=== PATIENT | male | born 1955 | race African-American/Black ===

== ENCOUNTER 2020-07-20 17:56 | Inpatient (IN) | payer OTHER ==
[2020-07-20 20:24] LABS: VENOUS BASE EXCESS -4.5 mmol/L (-2-2); VENOUS O2 SATURATION 31.4 % (70-80); VENOUS PCO2 55.3 mmHg (38-52); VENOUS PH 7.249 (7.310-7.410)
[2020-07-20 20:25] LABS: BASO % 0.6 % (0-2.0); EOS % 0.3 % (0-4.5); HEMATOCRIT 42.9 % (35.4-49); HEMOGLOBIN 13.6 GM/dL (11.7-16.9); LYMPH % 11.4 % (8-40); MCH 28.4 pg (25.7-33.7); MCHC 31.7 g/dl (32.0-35.9); MEAN CELL VOLUME 89.5 fl (80-96); MEAN PLT VOLUME 9.8 fl (7.5-11.1); MONO % 8.5 % (3.8-10.2); NEUT % 79.2 % (42.8-82.8); PLATELET COUNT 412 K/MM3 (134-434); WHITE BLOOD COUNT 11.6 K/mm3 (4.0-10.0)
[2020-07-20 20:49] LABS: CHLORIDE 73 mmol/L (98-107); POTASSIUM 4.6 mmol/L (3.5-5.1)
[2020-07-20 20:51] LABS: CALCIUM 9.6 mg/dL (8.5-10.1)
[2020-07-20 20:52] LABS: ALBUMIN 4.4 g/dl (3.4-5.0); BLOOD UREA NITROGEN 73.5 mg/dL (7-18); CO2 24 mmol/L (21-32)
[2020-07-20 20:55] LABS: CREATININE 4.2 mg/dL (0.55-1.3); SGOT/AST 16 U/L (15-37); SGPT/ALT 24 U/L (13-61)
[2020-07-20 20:57] LABS: BILIRUBIN,TOTAL 0.6 mg/dL (0.2-1); TOT PROT 9.3 g/dl (6.4-8.2)
[2020-07-20 20:57] LABS: EPI CELLS 4 /uL (0-25.1); HYALINE CASTS 0 /uL (0-3.1); URINE APPEARANCE CLEAR; URINE BACTERIA 88 /uL (0-1359); URINE BILIRUBIN NEGATIVE (NEGATIVE); URINE COLOR YELLOW; URINE GLUCOSE (UA) 3+ (NEGATIVE); URINE KETONE NEGATIVE (NEGATIVE); URINE LEUK ESTERASE NEGATIVE (NEGATIVE); URINE NITRITE NEGATIVE (NEGATIVE); URINE PROTEIN NEGATIVE (NEGATIVE); URINE RBC 11 /uL (0-23.9); URINE UROBILINOGEN 0.2 mg/dL (0.2-1.0); URINE WBC 21 /uL (0-25.8)
[2020-07-20 20:58] LABS: ALK PHOS 186 U/L (45-117)
[2020-07-20 21:09] LABS: ANION GAP 14 MMOL/L (8-16)
[2020-07-20 21:10] LABS: GLUCOSE,RANDOM 1022 mg/dL (74-106)
[2020-07-20 21:11] LABS: SODIUM 111 mmol/L (136-145)
[2020-07-20] MEDS ORDERED: LACTATED RINGERS SOLUTION 1000 ML INFUS.BAG IV ONE ×2 (21:25→21:37)
[2020-07-20] MEDS ORDERED: INSULIN REGULAR 100 UNITS in SODIUM CHLORIDE 99 ML IVPB SCH (21:30)
[2020-07-20] MEDS ORDERED: INSULIN REGULAR HUMAN 100 UNITS/ML *VIAL* (FOR IVP) IVPUSH ONE (21:30)
[2020-07-20 21:47] LABS: MAGNESIUM 2.3 mg/dL (1.8-2.4)
[2020-07-20] MEDS ORDERED: KCL 10 MEQ IVPB 10 MEQ/100 ML INFUS.BAG IVPB ONE (21:48)
[2020-07-20 21:58] LABS: OSMOLALITY,SERUM 331 mosm/kg (278-305)
[2020-07-20] MEDS: KCL 10 MEQ IVPB 10 MEQ/100 ML INFUS.BAG IVPB SCH (22:09)
[2020-07-20] MEDS ORDERED: HYDROCORTISONE 0.5% TOPICAL CREAM 30 GM TUBE TP ONE (22:10)
[2020-07-20] MEDS ORDERED: SODIUM CHLORIDE 1,000 ML IV SCH (23:00)
[2020-07-21] MEDS ORDERED: KCL 10 MEQ IVPB 10 MEQ/100 ML INFUS.BAG IVPB ONE (00:28)
[2020-07-21] MEDS: KCL 10 MEQ IVPB 10 MEQ/100 ML INFUS.BAG IVPB SCH (00:36)
[2020-07-21 00:46] LABS: POTASSIUM 3.8 mmol/L (3.5-5.1)
[2020-07-21 00:50] LABS: CALCIUM 9.1 mg/dL (8.5-10.1)
[2020-07-21 00:53] LABS: CREATININE 4.1 mg/dL (0.55-1.3)
[2020-07-21] MEDS: SODIUM CHLORIDE 0.45%/POT 20 MEQ/1,000 ML INFUS.BAG IV SCH ×2 (01:57→06:00)
[2020-07-21 02:50] LABS: POTASSIUM 3.6 mmol/L (3.5-5.1)
[2020-07-21 02:51] LABS: CALCIUM 9.4 mg/dL (8.5-10.1)
[2020-07-21 02:52] LABS: BLOOD UREA NITROGEN 68.9 mg/dL (7-18)
[2020-07-21 02:55] LABS: CREATININE 3.8 mg/dL (0.55-1.3)
[2020-07-21] MEDS ORDERED: POTASSIUM CHLORIDE TABS 20 MEQ TABLET.ER (FP) PO ONE (03:15)
[2020-07-21] MEDS: MUPIROCIN 2% TOPICAL OINTMENT FOR DECOLONIZATION NS SCH ×2 (03:30→10:04)
[2020-07-21] MEDS: HEPARIN NA (PORCINE) 5,000 UNITS/ML 1ML VIAL SQ SCH ×3 (05:01→23:12)
[2020-07-21 07:05] LABS: MAGNESIUM 2.3 mg/dL (1.8-2.4); PHOSPHOROUS 2.5 mg/dL (2.5-4.9)
[2020-07-21] MEDS ORDERED: INSULIN (LEVEMIR) 100 UNITS/ML UNITS SQ ONE (07:24)
[2020-07-21 07:35] LABS: MCH 28.7 pg (25.7-33.7); MCHC 33.4 g/dl (32.0-35.9); MEAN CELL VOLUME 85.8 fl (80-96); MEAN PLT VOLUME 9.2 fl (7.5-11.1); PLATELET COUNT 385 K/MM3 (134-434); RBC 4.54 M/mm3 (4.00-5.60); RDW 12.5 % (11.9-15.9); WHITE BLOOD COUNT 14.2 K/mm3 (4.0-10.0)
[2020-07-21] MEDS ORDERED: ACETAMINOPHEN 1000 MG/100 ML VIAL (NON FORMULARY) IVPB ONE (08:39)
[2020-07-21] MEDS ORDERED: FLU VACCINE (FLULAVAL) PF 60 MCG/0.5 ML SYRINGE 2020-2021 IM ONE (10:00)
[2020-07-21] MEDS ORDERED: INSULIN (LEVEMIR) 100 UNITS/ML UNITS SQ SCH ×3 (10:00→16:30)
[2020-07-21] MEDS ORDERED: metoPROLOL SUCCINATE 25 MG TAB.SR.24H (FP) PO SCH (10:00)
[2020-07-21] MEDS ORDERED: ASPIRIN 81 MG CHEWABLE TABLETS PO SCH (10:00)
[2020-07-21] MEDS ORDERED: PNEUMOC 13-VAL CONJ-DIP CRM/PF 0.5 ML DISP.SYRIN IM ONE (10:00)
[2020-07-21] MEDS ORDERED: CLOPIDOGREL BISULFATE 75 MG TABLET (FP) PO SCH (10:00)
[2020-07-21] MEDS ORDERED: PT OWN MED DRAWER 7, Y5N ONE (10:02)
[2020-07-21] MEDS ORDERED: INSULIN SLIDING SCALE (NOVOLOG) 1 VIAL SQ SCH (11:00)
[2020-07-21] MEDS ORDERED: LACTATED RINGERS SOLUTION 1,000 ML/1,000 ML INFUS.BAG IV SCH ×2 (13:00→19:42)
[2020-07-21] MEDS: INSULIN SLIDING SCALE (NOVOLOG) 1 VIAL SQ SCH ×2 (16:03→23:15)
[2020-07-21] MEDS ORDERED: CHLORHEXIDINE GLUCONATE 4% CLEANSER FOR DECOLONIZATION TP SCH (22:00)
[2020-07-21] MEDS ORDERED: ATORVASTATIN CA 80 MG TABLET (FP) PO SCH (22:00)
[2020-07-21] MEDS: ATORVASTATIN CA 80 MG TABLET (FP) PO SCH (23:13)
[2020-07-22] MEDS: HEPARIN NA (PORCINE) 5,000 UNITS/ML 1ML VIAL SQ SCH ×3 (06:23→22:05)
[2020-07-22] MEDS: INSULIN SLIDING SCALE (NOVOLOG) 1 VIAL SQ SCH ×4 (06:25→22:04)
[2020-07-22] MEDS ORDERED: INSULIN (LEVEMIR) 100 UNITS/ML UNITS SQ SCH (07:00)
[2020-07-22] MEDS: INSULIN (LEVEMIR) 100 UNITS/ML UNITS SQ SCH ×2 (10:30→17:06)
[2020-07-22] MEDS: metoPROLOL SUCCINATE 25 MG TAB.SR.24H (FP) PO SCH (10:30)
[2020-07-22] MEDS: PANTOPRAZOLE SOD 40 MG SUSPENSION PACKET PO SCH (10:30)
[2020-07-22] MEDS: CLOPIDOGREL BISULFATE 75 MG TABLET (FP) PO SCH (10:30)
[2020-07-22 10:40] LABS: BASO % 0.9 % (0-2.0); EOS % 2.1 % (0-4.5); HEMATOCRIT 37.4 % (35.4-49); HEMOGLOBIN 12.8 GM/dL (11.7-16.9); LYMPH % 21.5 % (8-40); MCH 29.1 pg (25.7-33.7); MCHC 34.3 g/dl (32.0-35.9); MEAN PLT VOLUME 9.6 fl (7.5-11.1); MONO % 10.7 % (3.8-10.2); NEUT % 64.8 % (42.8-82.8); PLATELET COUNT 390 K/MM3 (134-434); RDW 12.9 % (11.9-15.9); WHITE BLOOD COUNT 12.9 K/mm3 (4.0-10.0)
[2020-07-22 11:05] LABS: POTASSIUM 3.7 mmol/L (3.5-5.1)
[2020-07-22 11:08] LABS: CALCIUM 9.7 mg/dL (8.5-10.1)
[2020-07-22 11:09] LABS: ALBUMIN 3.8 g/dl (3.4-5.0); BLOOD UREA NITROGEN 55.8 mg/dL (7-18)
[2020-07-22 11:14] LABS: BILIRUBIN,TOTAL 0.8 mg/dL (0.2-1); TOT PROT 8.3 g/dl (6.4-8.2)
[2020-07-22] MEDS ORDERED: INSULIN (NOVOLOG) ASPART 100 UNITS/ML 10ML VIAL SQ ONE (14:22)
[2020-07-22] MEDS: SODIUM CHLORIDE 1,000 ML IV SCH (21:09)
[2020-07-22] MEDS: ATORVASTATIN CA 80 MG TABLET (FP) PO SCH (22:05)
[2020-07-23] MEDS: HEPARIN NA (PORCINE) 5,000 UNITS/ML 1ML VIAL SQ SCH ×3 (07:06→21:47)
[2020-07-23] MEDS: INSULIN (LEVEMIR) 100 UNITS/ML UNITS SQ SCH ×2 (07:06→17:29)
[2020-07-23] MEDS: INSULIN SLIDING SCALE (NOVOLOG) 1 VIAL SQ SCH ×3 (07:06→21:46)
[2020-07-23 09:25] LABS: HEMATOCRIT 36.3 % (35.4-49); HEMOGLOBIN 12.1 GM/dL (11.7-16.9); MCH 28.9 pg (25.7-33.7); MCHC 33.4 g/dl (32.0-35.9); MEAN CELL VOLUME 86.5 fl (80-96); MEAN PLT VOLUME 9.3 fl (7.5-11.1); PLATELET COUNT 356 K/MM3 (134-434); RDW 12.8 % (11.9-15.9); WHITE BLOOD COUNT 12.5 K/mm3 (4.0-10.0)
[2020-07-23 09:45] LABS: POTASSIUM 3.6 mmol/L (3.5-5.1)
[2020-07-23 09:49] LABS: BLOOD UREA NITROGEN 47.9 mg/dL (7-18); CALCIUM 9.2 mg/dL (8.5-10.1); MAGNESIUM 1.7 mg/dL (1.8-2.4)
[2020-07-23 09:52] LABS: CREATININE 2.8 mg/dL (0.55-1.3); PHOSPHOROUS 2.2 mg/dL (2.5-4.9)
[2020-07-23] MEDS: MULTIVITAMINS (DAILY MVI) TABLET (FP) PO SCH (10:55)
[2020-07-23] MEDS: metoPROLOL SUCCINATE 25 MG TAB.SR.24H (FP) PO SCH (10:55)
[2020-07-23] MEDS: CLOPIDOGREL BISULFATE 75 MG TABLET (FP) PO SCH (10:55)
[2020-07-23] MEDS: FOLIC ACID 1 MG TABLET (FP) PO SCH (10:55)
[2020-07-23] MEDS: PANTOPRAZOLE SOD 40 MG SUSPENSION PACKET PO SCH (10:55)
[2020-07-23] MEDS: THIAMINE HCL 100 MG TABLET (FP) PO SCH (10:55)
[2020-07-23] MEDS ORDERED: MAGNESIUM SULF 50% (8.12 MEQ/2 ML-1 GM VIAL) IVPB ONE (13:52)
[2020-07-23] MEDS ORDERED: NAPH,MB-DB/K PH,MBDB POWDER PACKET PO ONE (13:52)
[2020-07-23] MEDS ORDERED: MAGNESIUM OXIDE 400 MG TABLET (FP) PO ONE (14:25)
[2020-07-23] MEDS ORDERED: INSULIN SLIDING SCALE (NOVOLOG) 1 VIAL SQ SCH (16:30)
[2020-07-23] MEDS: ATORVASTATIN CA 80 MG TABLET (FP) PO SCH (21:47)
[2020-07-23] MEDS: SODIUM CHLORIDE 1,000 ML IV SCH (21:51)
[2020-07-24] MEDS: SODIUM CHLORIDE 1,000 ML IV SCH ×2 (03:56→17:50)
[2020-07-24] MEDS: INSULIN SLIDING SCALE (NOVOLOG) 1 VIAL SQ SCH ×4 (06:37→21:38)
[2020-07-24] MEDS: INSULIN (LEVEMIR) 100 UNITS/ML UNITS SQ SCH ×2 (06:37→17:50)
[2020-07-24] MEDS: HEPARIN NA (PORCINE) 5,000 UNITS/ML 1ML VIAL SQ SCH ×3 (06:38→21:36)
[2020-07-24] MEDS ORDERED: INSULIN (LEVEMIR) 100 UNITS/ML UNITS SQ ONE (07:19)
[2020-07-24] MEDS ORDERED: INSULIN (NOVOLOG) ASPART 100 UNITS/ML 10ML VIAL ONE (07:20)
[2020-07-24 09:30] LABS: INR 1.19 (0.83-1.09); PROTHROMBIN TIME (PATIENT) 14.3 SEC (9.7-13.0)
[2020-07-24] MEDS: FOLIC ACID 1 MG TABLET (FP) PO SCH (09:34)
[2020-07-24] MEDS: THIAMINE HCL 100 MG TABLET (FP) PO SCH (09:34)
[2020-07-24] MEDS: CLOPIDOGREL BISULFATE 75 MG TABLET (FP) PO SCH (09:34)
[2020-07-24] MEDS: PANTOPRAZOLE SOD 40 MG SUSPENSION PACKET PO SCH (09:34)
[2020-07-24] MEDS: MULTIVITAMINS (DAILY MVI) TABLET (FP) PO SCH (09:35)
[2020-07-24] MEDS: metoPROLOL SUCCINATE 25 MG TAB.SR.24H (FP) PO SCH (09:37)
[2020-07-24 09:44] LABS: POTASSIUM 3.4 mmol/L (3.5-5.1)
[2020-07-24 09:48] LABS: BASO % 0.9 % (0-2.0); EOS % 1.4 % (0-4.5); HEMATOCRIT 34.6 % (35.4-49); HEMOGLOBIN 11.3 GM/dL (11.7-16.9); LYMPH % 18.7 % (8-40); MCH 28.5 pg (25.7-33.7); MCHC 32.5 g/dl (32.0-35.9); MEAN CELL VOLUME 87.6 fl (80-96); MEAN PLT VOLUME 9.6 fl (7.5-11.1); MONO % 12.9 % (3.8-10.2); NEUT % 66.1 % (42.8-82.8); PLATELET COUNT 344 K/MM3 (134-434); RBC 3.95 M/mm3 (4.00-5.60); RDW 12.7 % (11.9-15.9); WHITE BLOOD COUNT 13.9 K/mm3 (4.0-10.0)
[2020-07-24 09:52] LABS: CALCIUM 9.1 mg/dL (8.5-10.1)
[2020-07-24 09:53] LABS: ALBUMIN 3.6 g/dl (3.4-5.0); BLOOD UREA NITROGEN 41.4 mg/dL (7-18); MAGNESIUM 1.7 mg/dL (1.8-2.4)
[2020-07-24 09:56] LABS: CREATININE 2.5 mg/dL (0.55-1.3); PHOSPHOROUS 1.8 mg/dL (2.5-4.9)
[2020-07-24 09:58] LABS: BILIRUBIN,TOTAL 1.6 mg/dL (0.2-1); TOT PROT 7.7 g/dl (6.4-8.2)
[2020-07-24] MEDS ORDERED: MAGNESIUM SULF 50% (8.12 MEQ/2 ML-1 GM VIAL) IVPB ONE (14:06)
[2020-07-24] MEDS ORDERED: POTASSIUM CHLORIDE ORAL LIQUID 20 MEQ/15 ML PO ONE (14:06)
[2020-07-24] MEDS ORDERED: NAPH,MB-DB/K PH,MBDB POWDER PACKET PO ONE (14:08)
[2020-07-24] MEDS ORDERED: MAGNESIUM OXIDE 400 MG TABLET (FP) PO ONE (14:49)
[2020-07-24] MEDS ORDERED: INSULIN (NOVOLOG) ASPART 100 UNITS/ML 10ML VIAL SQ SCH (16:30)
[2020-07-24] MEDS: ACETAMINOPHEN 325 MG TABLET (FP) PO PRN (17:44)
[2020-07-24] MEDS: KCL 10 MEQ IVPB 10 MEQ/100 ML INFUS.BAG IVPB SCH ×3 (17:48→21:36)
[2020-07-24] MEDS: NAPH,MB-DB/K PH,MBDB POWDER PACKET PO SCH ×2 (17:49→21:36)
[2020-07-24] MEDS: INSULIN (NOVOLOG) ASPART 100 UNITS/ML 10ML VIAL SQ SCH (17:55)
[2020-07-24 21:00] LABS: URINE APPEARANCE CLEAR; URINE BILIRUBIN NEGATIVE (NEGATIVE); URINE COLOR YELLOW; URINE GLUCOSE (UA) 3+ (NEGATIVE); URINE KETONE NEGATIVE (NEGATIVE); URINE LEUK ESTERASE NEGATIVE (NEGATIVE); URINE NITRITE NEGATIVE (NEGATIVE); URINE PROTEIN NEGATIVE (NEGATIVE); URINE UROBILINOGEN 0.2 mg/dL (0.2-1.0)
[2020-07-24] MEDS ORDERED: ACETAMINOPHEN 500 MG TABLET (FP) PO ONE (21:24)
[2020-07-24] MEDS: ATORVASTATIN CA 80 MG TABLET (FP) PO SCH (21:36)
[2020-07-25] MEDS: HEPARIN NA (PORCINE) 5,000 UNITS/ML 1ML VIAL SQ SCH ×3 (06:01→21:06)
[2020-07-25] MEDS: INSULIN (LEVEMIR) 100 UNITS/ML UNITS SQ SCH ×4 (06:02→17:44)
[2020-07-25] MEDS: INSULIN (NOVOLOG) ASPART 100 UNITS/ML 10ML VIAL SQ SCH ×3 (06:03→17:44)
[2020-07-25] MEDS: INSULIN SLIDING SCALE (NOVOLOG) 1 VIAL SQ SCH ×4 (06:04→21:10)
[2020-07-25] MEDS ORDERED: INSULIN (LEVEMIR) 100 UNITS/ML UNITS SQ ONE (08:03)
[2020-07-25] MEDS: THIAMINE HCL 100 MG TABLET (FP) PO SCH (09:21)
[2020-07-25] MEDS: MULTIVITAMINS (DAILY MVI) TABLET (FP) PO SCH (09:21)
[2020-07-25] MEDS: FOLIC ACID 1 MG TABLET (FP) PO SCH (09:22)
[2020-07-25] MEDS: CLOPIDOGREL BISULFATE 75 MG TABLET (FP) PO SCH (09:22)
[2020-07-25] MEDS: metoPROLOL SUCCINATE 25 MG TAB.SR.24H (FP) PO SCH (09:22)
[2020-07-25] MEDS: NAPH,MB-DB/K PH,MBDB POWDER PACKET PO SCH ×3 (09:22→21:12)
[2020-07-25] MEDS: ACETAMINOPHEN 325 MG TABLET (FP) PO PRN ×3 (09:27→21:06)
[2020-07-25 10:03] LABS: POTASSIUM 3.8 mmol/L (3.5-5.1)
[2020-07-25 10:05] LABS: BASO % 0.9 % (0-2.0); EOS % 1.7 % (0-4.5); HEMOGLOBIN 10.8 GM/dL (11.7-16.9); LYMPH % 17.9 % (8-40); MCHC 33.6 g/dl (32.0-35.9); MEAN CELL VOLUME 86.3 fl (80-96); MEAN PLT VOLUME 9.3 fl (7.5-11.1); MONO % 12.4 % (3.8-10.2); NEUT % 67.1 % (42.8-82.8); PLATELET COUNT 365 K/MM3 (134-434); RBC 3.71 M/mm3 (4.00-5.60); RDW 12.9 % (11.9-15.9); WHITE BLOOD COUNT 15.6 K/mm3 (4.0-10.0)
[2020-07-25 10:07] LABS: CALCIUM 8.9 mg/dL (8.5-10.1)
[2020-07-25 10:08] LABS: ALBUMIN 3.2 g/dl (3.4-5.0); BLOOD UREA NITROGEN 31.5 mg/dL (7-18); MAGNESIUM 1.8 mg/dL (1.8-2.4)
[2020-07-25 10:11] LABS: CREATININE 2.3 mg/dL (0.55-1.3); PHOSPHOROUS 1.6 mg/dL (2.5-4.9)
[2020-07-25 10:13] LABS: BILIRUBIN,TOTAL 1.9 mg/dL (0.2-1); TOT PROT 7.4 g/dl (6.4-8.2)
[2020-07-25] MEDS: PANTOPRAZOLE SOD 40 MG SUSPENSION PACKET PO SCH (11:02)
[2020-07-25] MEDS ORDERED: INSULIN (NOVOLOG) ASPART 100 UNITS/ML 10ML VIAL ONE (12:05)
[2020-07-25] MEDS: PANTOPRAZOLE 40 MG TABLET PO SCH (12:33)
[2020-07-25 13:05] LABS: RETICULOCYTES 1.59 % (0.5-1.5)
[2020-07-25] MEDS: SODIUM CHLORIDE 1,000 ML IV SCH (14:04)
[2020-07-25] MEDS: ATORVASTATIN CA 80 MG TABLET (FP) PO SCH (21:06)
[2020-07-26] MEDS ORDERED: INSULIN (NOVOLOG) ASPART 100 UNITS/ML 10ML VIAL ONE (05:46)
[2020-07-26] MEDS: HEPARIN NA (PORCINE) 5,000 UNITS/ML 1ML VIAL SQ SCH ×3 (06:01→21:17)
[2020-07-26] MEDS: INSULIN (LEVEMIR) 100 UNITS/ML UNITS SQ SCH ×2 (06:01→18:06)
[2020-07-26] MEDS: INSULIN (NOVOLOG MIX 70/30) 100 UNITS/ML MDV SQ SCH ×2 (06:01→18:10)
[2020-07-26] MEDS: INSULIN SLIDING SCALE (NOVOLOG) 1 VIAL SQ SCH ×4 (06:03→21:26)
[2020-07-26] MEDS: ACETAMINOPHEN 325 MG TABLET (FP) PO PRN (06:12)
[2020-07-26] MEDS ORDERED: INSULIN (NOVOLOG MIX 70/30) 100 UNITS/ML MDV SQ SCH (07:00)
[2020-07-26 10:26] LABS: BASO % 1.1 % (0-2.0); EOS % 1.8 % (0-4.5); HEMATOCRIT 31.3 % (35.4-49); HEMOGLOBIN 10.1 GM/dL (11.7-16.9); LYMPH % 13.1 % (8-40); MCH 28.4 pg (25.7-33.7); MCHC 32.2 g/dl (32.0-35.9); MEAN PLT VOLUME 8.9 fl (7.5-11.1); MONO % 14.2 % (3.8-10.2); NEUT % 69.8 % (42.8-82.8); PLATELET COUNT 376 K/MM3 (134-434); RBC 3.55 M/mm3 (4.00-5.60); RDW 13.3 % (11.9-15.9); WHITE BLOOD COUNT 17.2 K/mm3 (4.0-10.0)
[2020-07-26] MEDS: SODIUM CHLORIDE 1,000 ML IV SCH ×3 (10:38→23:31)
[2020-07-26] MEDS: MULTIVITAMINS (DAILY MVI) TABLET (FP) PO SCH (10:39)
[2020-07-26] MEDS: CLOPIDOGREL BISULFATE 75 MG TABLET (FP) PO SCH (10:39)
[2020-07-26] MEDS: THIAMINE HCL 100 MG TABLET (FP) PO SCH (10:39)
[2020-07-26] MEDS: FOLIC ACID 1 MG TABLET (FP) PO SCH (10:39)
[2020-07-26] MEDS: PANTOPRAZOLE 40 MG TABLET PO SCH (10:39)
[2020-07-26] MEDS: metoPROLOL SUCCINATE 25 MG TAB.SR.24H (FP) PO SCH (10:39)
[2020-07-26 10:53] LABS: POTASSIUM 4.6 mmol/L (3.5-5.1)
[2020-07-26 10:59] LABS: CALCIUM 8.9 mg/dL (8.5-10.1)
[2020-07-26 11:00] LABS: ALBUMIN 3.1 g/dl (3.4-5.0); BLOOD UREA NITROGEN 26.5 mg/dL (7-18); MAGNESIUM 1.5 mg/dL (1.8-2.4)
[2020-07-26 11:03] LABS: CREATININE 2.2 mg/dL (0.55-1.3); PHOSPHOROUS 1.7 mg/dL (2.5-4.9)
[2020-07-26 11:04] LABS: TOT PROT 7.4 g/dl (6.4-8.2)
[2020-07-26] MEDS ORDERED: MAGNESIUM OXIDE 400 MG TABLET (FP) PO ONE (12:31)
[2020-07-26] MEDS ORDERED: MAGNESIUM SULF 50% (8.12 MEQ/2 ML-1 GM VIAL) IVPB ONE (14:15)
[2020-07-26 15:09] LABS: TOTAL PROTEIN, URINE 18.3 mg/dL (Not Estab.)
[2020-07-26] MEDS: NAPH,MB-DB/K PH,MBDB POWDER PACKET PO SCH ×2 (15:21→21:17)
[2020-07-26 18:21] LABS: PH,URINE 5.5 (5.0-8.0); URINE APPEARANCE CLEAR; URINE BILIRUBIN NEGATIVE (NEGATIVE); URINE COLOR YELLOW; URINE GLUCOSE (UA) 3+ (NEGATIVE); URINE KETONE NEGATIVE (NEGATIVE); URINE LEUK ESTERASE NEGATIVE (NEGATIVE); URINE NITRITE NEGATIVE (NEGATIVE); URINE PROTEIN TRACE (NEGATIVE); URINE UROBILINOGEN 4.0 E.U/dl mg/dL (0.2-1.0)
[2020-07-26] MEDS: ATORVASTATIN CA 80 MG TABLET (FP) PO SCH (21:17)
[2020-07-27] MEDS: ACETAMINOPHEN 325 MG TABLET (FP) PO PRN ×2 (05:31→12:00)
[2020-07-27] MEDS: HEPARIN NA (PORCINE) 5,000 UNITS/ML 1ML VIAL SQ SCH ×3 (05:59→21:11)
[2020-07-27] MEDS: INSULIN SLIDING SCALE (NOVOLOG) 1 VIAL SQ SCH ×4 (06:10→21:46)
[2020-07-27] MEDS: INSULIN (LEVEMIR) 100 UNITS/ML UNITS SQ SCH (07:09)
[2020-07-27 08:47] LABS: BASO % 0.6 % (0-2.0); EOS % 1.5 % (0-4.5); HEMATOCRIT 26.4 % (35.4-49); HEMOGLOBIN 8.7 GM/dL (11.7-16.9); LYMPH % 15.2 % (8-40); MEAN PLT VOLUME 8.7 fl (7.5-11.1); MONO % 13.4 % (3.8-10.2); NEUT % 69.3 % (42.8-82.8); PLATELET COUNT 395 K/MM3 (134-434); RDW 13.2 % (11.9-15.9); WHITE BLOOD COUNT 17.7 K/mm3 (4.0-10.0)
[2020-07-27] MEDS: INSULIN (NOVOLOG MIX 70/30) 100 UNITS/ML MDV SQ SCH (08:55)
[2020-07-27 08:58] LABS: POTASSIUM 4.1 mmol/L (3.5-5.1)
[2020-07-27 09:09] LABS: CALCIUM 8.7 mg/dL (8.5-10.1)
[2020-07-27 09:10] LABS: ALBUMIN 2.9 g/dl (3.4-5.0); BLOOD UREA NITROGEN 21.7 mg/dL (7-18); MAGNESIUM 1.7 mg/dL (1.8-2.4)
[2020-07-27 09:14] LABS: BILIRUBIN,TOTAL 2.3 mg/dL (0.2-1)
[2020-07-27 09:15] LABS: CREATININE 1.9 mg/dL (0.55-1.3); PHOSPHOROUS 2.4 mg/dL (2.5-4.9); TOT PROT 6.7 g/dl (6.4-8.2)
[2020-07-27] MEDS: PANTOPRAZOLE 40 MG TABLET PO SCH (10:38)
[2020-07-27] MEDS: MULTIVITAMINS (DAILY MVI) TABLET (FP) PO SCH (10:38)
[2020-07-27] MEDS: THIAMINE HCL 100 MG TABLET (FP) PO SCH (10:38)
[2020-07-27] MEDS: metoPROLOL SUCCINATE 25 MG TAB.SR.24H (FP) PO SCH (10:38)
[2020-07-27] MEDS: FOLIC ACID 1 MG TABLET (FP) PO SCH (10:38)
[2020-07-27] MEDS: CLOPIDOGREL BISULFATE 75 MG TABLET (FP) PO SCH (10:38)
[2020-07-27] MEDS: NAPH,MB-DB/K PH,MBDB POWDER PACKET PO SCH (10:39)
[2020-07-27] MEDS: SODIUM CHLORIDE 1,000 ML IV SCH ×3 (10:39→16:34)
[2020-07-27 13:51] LABS: ERYTHROCYTE SEDIMENTATION RATE 101 mm/hr (0-20)
[2020-07-27 14:32] LABS: BILIRUBIN,DIRECT 1.1 mg/dL (0.0-0.2)
[2020-07-27] MEDS ORDERED: INSULIN (LEVEMIR) 100 UNITS/ML UNITS SQ SCH ×2 (14:35→17:59)
[2020-07-27] MEDS ORDERED: INSULIN (NOVOLOG MIX 70/30) 100 UNITS/ML MDV SQ SCH (14:35)
[2020-07-27 15:22] LABS: PH,URINE 5.5 (5.0-8.0); URINE APPEARANCE CLEAR; URINE BILIRUBIN NEGATIVE (NEGATIVE); URINE COLOR DK YELLOW; URINE GLUCOSE (UA) 2+ (NEGATIVE); URINE KETONE NEGATIVE (NEGATIVE); URINE LEUK ESTERASE NEGATIVE (NEGATIVE); URINE NITRITE NEGATIVE (NEGATIVE); URINE PROTEIN TRACE (NEGATIVE); URINE UROBILINOGEN 4.0 E.U/dl mg/dL (0.2-1.0)
[2020-07-27] MEDS ORDERED: NAPH,MB-DB/K PH,MBDB POWDER PACKET PO ONE (15:31)
[2020-07-27] MEDS ORDERED: MAGNESIUM SULF 50% (8.12 MEQ/2 ML-1 GM VIAL) IVPB ONE (15:31)
[2020-07-27] MEDS ORDERED: MAGNESIUM 2GM/50ML STERILE WATER IVPB IVPB ONE (16:45)
[2020-07-27] MEDS ORDERED: VANCOMYCIN 1 GM in D5W (PRE-DOCKED) 1,000 MG/250 ML IVPB ONE (16:55)
[2020-07-27] MEDS ORDERED: CEFTRIAXONE 1 GM in DEXTROSE 5%-WATER - 50 ML IVPB ONE (16:55)
[2020-07-27] MEDS ORDERED: CEFTRIAXONE 2 GM in DEXTROSE 5%-WATER - 50 ML IVPB ONE (17:04)
[2020-07-27] MEDS: oxyCODONE HCL 5 MG TABLET PO PRN (17:59)
[2020-07-27] MEDS ORDERED: INSULIN (LEVEMIR) 100 UNITS/ML UNITS SQ ONE ×2 (18:29→19:38)
[2020-07-27] MEDS ORDERED: INSULIN (NOVOLOG MIX 70/30) 100 UNITS/ML MDV SQ ONE (19:38)
[2020-07-27] MEDS ORDERED: INSULIN (NOVOLOG) ASPART 100 UNITS/ML 10ML VIAL ONE (19:38)
[2020-07-27] MEDS ORDERED: PT OWN MED DRAWER 7, Y5N ONE (19:39)
[2020-07-27] MEDS ORDERED: DEXTROSE 5%-WATER - 50 ML IVPB ONE (19:47)
[2020-07-27] MEDS ORDERED: cefTRIAXone SODIUM 1 GM VIAL ONE (19:47)
[2020-07-27 19:53] LABS: BF WBC & OTHER NUCLEATED CELLS 8258 /mm3
[2020-07-27] MEDS: ATORVASTATIN CA 80 MG TABLET (FP) PO SCH (21:11)
[2020-07-27 21:22] LABS: BODY FLUID MONOCYTE 13 %
[2020-07-28] MEDS: oxyCODONE HCL 5 MG TABLET PO PRN ×4 (00:04→20:04)
[2020-07-28] MEDS: SODIUM CHLORIDE 1,000 ML IV SCH (02:23)
[2020-07-28] MEDS: HEPARIN NA (PORCINE) 5,000 UNITS/ML 1ML VIAL SQ SCH ×2 (05:58→13:58)
[2020-07-28] MEDS: INSULIN SLIDING SCALE (NOVOLOG) 1 VIAL SQ SCH ×4 (06:47→21:59)
[2020-07-28] MEDS: INSULIN (NOVOLOG) ASPART 100 UNITS/ML 10ML VIAL SQ SCH ×2 (07:30→16:57)
[2020-07-28 09:21] LABS: BASO % 0.6 % (0-2.0); HEMOGLOBIN 8.7 GM/dL (11.7-16.9); LYMPH % 16.3 % (8-40); MCH 28.6 pg (25.7-33.7); MCHC 32.1 g/dl (32.0-35.9); MEAN CELL VOLUME 89.2 fl (80-96); MEAN PLT VOLUME 8.6 fl (7.5-11.1); MONO % 10.6 % (3.8-10.2); NEUT % 70.5 % (42.8-82.8); PLATELET COUNT 442 K/MM3 (134-434); RBC 3.02 M/mm3 (4.00-5.60); RDW 13.5 % (11.9-15.9); WHITE BLOOD COUNT 17.3 K/mm3 (4.0-10.0)
[2020-07-28 09:42] LABS: POTASSIUM 4.2 mmol/L (3.5-5.1)
[2020-07-28] MEDS: metoPROLOL SUCCINATE 25 MG TAB.SR.24H (FP) PO SCH (09:47)
[2020-07-28] MEDS: FOLIC ACID 1 MG TABLET (FP) PO SCH (09:47)
[2020-07-28] MEDS: PANTOPRAZOLE 40 MG TABLET PO SCH (09:47)
[2020-07-28] MEDS: CLOPIDOGREL BISULFATE 75 MG TABLET (FP) PO SCH (09:47)
[2020-07-28] MEDS: THIAMINE HCL 100 MG TABLET (FP) PO SCH (09:47)
[2020-07-28] MEDS: MULTIVITAMINS (DAILY MVI) TABLET (FP) PO SCH (09:48)
[2020-07-28 09:54] LABS: BLOOD UREA NITROGEN 22.2 mg/dL (7-18); CALCIUM 8.6 mg/dL (8.5-10.1)
[2020-07-28 09:55] LABS: ALBUMIN 2.8 g/dl (3.4-5.0); MAGNESIUM 1.7 mg/dL (1.8-2.4)
[2020-07-28 09:58] LABS: CREATININE 1.9 mg/dL (0.55-1.3); PHOSPHOROUS 2.9 mg/dL (2.5-4.9)
[2020-07-28] MEDS ORDERED: MAGNESIUM SULF 50% (8.12 MEQ/2 ML-1 GM VIAL) IVPB ONE (10:01)
[2020-07-28] MEDS: ACETAMINOPHEN 325 MG TABLET (FP) PO PRN (10:09)
[2020-07-28] MEDS ORDERED: INSULIN (NOVOLOG) ASPART 100 UNITS/ML 10ML VIAL ONE ×2 (11:28→16:43)
[2020-07-28] MEDS ORDERED: MAGNESIUM OXIDE 400 MG TABLET (FP) PO ONE (14:46)
[2020-07-28] MEDS: INSULIN (LEVEMIR) 100 UNITS/ML UNITS SQ SCH (18:49)
[2020-07-28] MEDS: ATORVASTATIN CA 80 MG TABLET (FP) PO SCH (21:58)
[2020-07-29] MEDS: oxyCODONE HCL 5 MG TABLET PO PRN ×3 (06:24→21:01)
[2020-07-29] MEDS: INSULIN (NOVOLOG) ASPART 100 UNITS/ML 10ML VIAL SQ SCH ×2 (06:27→17:47)
[2020-07-29] MEDS: INSULIN SLIDING SCALE (NOVOLOG) 1 VIAL SQ SCH ×4 (06:27→21:03)
[2020-07-29] MEDS: INSULIN (LEVEMIR) 100 UNITS/ML UNITS SQ SCH ×2 (06:28→17:47)
[2020-07-29 08:51] LABS: BASO % 0.8 % (0-2.0); EOS % 2.1 % (0-4.5); HEMATOCRIT 23.9 % (35.4-49); HEMOGLOBIN 7.8 GM/dL (11.7-16.9); LYMPH % 13.4 % (8-40); MCHC 32.5 g/dl (32.0-35.9); MEAN CELL VOLUME 89.3 fl (80-96); MONO % 12.9 % (3.8-10.2); NEUT % 70.8 % (42.8-82.8); PLATELET COUNT 421 K/MM3 (134-434); RBC 2.67 M/mm3 (4.00-5.60); RDW 13.6 % (11.9-15.9); WHITE BLOOD COUNT 16.2 K/mm3 (4.0-10.0)
[2020-07-29 09:07] LABS: POTASSIUM 4.3 mmol/L (3.5-5.1)
[2020-07-29 09:16] LABS: ALBUMIN 2.7 g/dl (3.4-5.0); BLOOD UREA NITROGEN 25.1 mg/dL (7-18); CALCIUM 8.9 mg/dL (8.5-10.1)
[2020-07-29 09:17] LABS: MAGNESIUM 1.8 mg/dL (1.8-2.4)
[2020-07-29 09:20] LABS: CREATININE 1.9 mg/dL (0.55-1.3); PHOSPHOROUS 2.5 mg/dL (2.5-4.9)
[2020-07-29 09:21] LABS: BILIRUBIN,TOTAL 2.4 mg/dL (0.2-1)
[2020-07-29] MEDS ORDERED: PT OWN MED DRAWER 7, Y5N ONE (10:20)
[2020-07-29] MEDS: metoPROLOL SUCCINATE 25 MG TAB.SR.24H (FP) PO SCH (10:44)
[2020-07-29] MEDS: PANTOPRAZOLE 40 MG TABLET PO SCH (10:44)
[2020-07-29] MEDS: CLOPIDOGREL BISULFATE 75 MG TABLET (FP) PO SCH (10:44)
[2020-07-29] MEDS: FOLIC ACID 1 MG TABLET (FP) PO SCH (10:44)
[2020-07-29] MEDS: THIAMINE HCL 100 MG TABLET (FP) PO SCH (10:44)
[2020-07-29] MEDS: MULTIVITAMINS (DAILY MVI) TABLET (FP) PO SCH (10:44)
[2020-07-29 12:35] LABS: URIC ACID 6.8 mg/dL (2.6-7.2)
[2020-07-29] MEDS: predniSONE 20 MG TABLET (UD) PO SCH (14:47)
[2020-07-29] MEDS: ATORVASTATIN CA 80 MG TABLET (FP) PO SCH (21:02)
[2020-07-30] MEDS: oxyCODONE HCL 5 MG TABLET PO PRN ×4 (04:02→21:49)
[2020-07-30] MEDS: INSULIN (NOVOLOG) ASPART 100 UNITS/ML 10ML VIAL SQ SCH ×2 (06:53→18:02)
[2020-07-30] MEDS: INSULIN SLIDING SCALE (NOVOLOG) 1 VIAL SQ SCH ×4 (06:55→21:54)
[2020-07-30] MEDS: INSULIN (LEVEMIR) 100 UNITS/ML UNITS SQ SCH ×2 (06:55→18:02)
[2020-07-30] MEDS ORDERED: PT OWN MED DRAWER 7, Y5N ONE (07:31)
[2020-07-30 09:47] LABS: HEMATOCRIT 24.3 % (35.4-49); HEMOGLOBIN 7.7 GM/dL (11.7-16.9); MCH 28.6 pg (25.7-33.7); MCHC 31.6 g/dl (32.0-35.9); MEAN CELL VOLUME 90.4 fl (80-96); MEAN PLT VOLUME 7.8 fl (7.5-11.1); PLATELET COUNT 515 K/MM3 (134-434); RBC 2.69 M/mm3 (4.00-5.60); RDW 14.1 % (11.9-15.9); WHITE BLOOD COUNT 18.4 K/mm3 (4.0-10.0)
[2020-07-30 09:56] LABS: ACTIVATED PTT 31.8 SECONDS (25.2-36.5); INR 1.17 (0.83-1.09); PROTHROMBIN TIME (PATIENT) 14.3 SEC (9.7-13.0)
[2020-07-30] MEDS: THIAMINE HCL 100 MG TABLET (FP) PO SCH (09:56)
[2020-07-30] MEDS: PANTOPRAZOLE 40 MG TABLET PO SCH (10:02)
[2020-07-30] MEDS: predniSONE 20 MG TABLET (UD) PO SCH (10:02)
[2020-07-30] MEDS: metoPROLOL SUCCINATE 25 MG TAB.SR.24H (FP) PO SCH (10:02)
[2020-07-30] MEDS: MULTIVITAMINS (DAILY MVI) TABLET (FP) PO SCH (10:02)
[2020-07-30] MEDS: CLOPIDOGREL BISULFATE 75 MG TABLET (FP) PO SCH (10:02)
[2020-07-30] MEDS: ACETAMINOPHEN 325 MG TABLET (FP) PO PRN (10:02)
[2020-07-30] MEDS: FOLIC ACID 1 MG TABLET (FP) PO SCH (10:02)
[2020-07-30 10:09] LABS: POTASSIUM 4.4 mmol/L (3.5-5.1)
[2020-07-30 10:12] LABS: CALCIUM 9.4 mg/dL (8.5-10.1)
[2020-07-30 10:16] LABS: CREATININE 2.2 mg/dL (0.55-1.3)
[2020-07-30] MEDS: ATORVASTATIN CA 80 MG TABLET (FP) PO SCH (21:50)
[2020-07-31] MEDS: oxyCODONE HCL 5 MG TABLET PO PRN (06:09)
[2020-07-31] MEDS: INSULIN (LEVEMIR) 100 UNITS/ML UNITS SQ SCH ×2 (06:14→16:37)
[2020-07-31] MEDS: INSULIN (NOVOLOG) ASPART 100 UNITS/ML 10ML VIAL SQ SCH ×2 (06:15→16:38)
[2020-07-31] MEDS: INSULIN SLIDING SCALE (NOVOLOG) 1 VIAL SQ SCH ×4 (06:16→23:51)
[2020-07-31] MEDS: FOLIC ACID 1 MG TABLET (FP) PO SCH (09:13)
[2020-07-31] MEDS: MULTIVITAMINS (DAILY MVI) TABLET (FP) PO SCH (09:13)
[2020-07-31] MEDS: predniSONE 20 MG TABLET (UD) PO SCH (09:13)
[2020-07-31] MEDS: metoPROLOL SUCCINATE 25 MG TAB.SR.24H (FP) PO SCH (09:13)
[2020-07-31] MEDS: THIAMINE HCL 100 MG TABLET (FP) PO SCH (09:13)
[2020-07-31] MEDS: PANTOPRAZOLE 40 MG TABLET PO SCH (09:13)
[2020-07-31] MEDS: CLOPIDOGREL BISULFATE 75 MG TABLET (FP) PO SCH (09:14)
[2020-07-31 09:59] LABS: HEMATOCRIT 21.4 % (35.4-49); MCH 29.2 pg (25.7-33.7); MCHC 32.4 g/dl (32.0-35.9); MEAN PLT VOLUME 7.5 fl (7.5-11.1); PLATELET COUNT 536 K/MM3 (134-434); RBC 2.37 M/mm3 (4.00-5.60); RDW 14.5 % (11.9-15.9); WHITE BLOOD COUNT 22.4 K/mm3 (4.0-10.0)
[2020-07-31 10:11] LABS: HEMOGLOBIN 6.9 GM/dL (11.7-16.9)
[2020-07-31 10:23] LABS: POTASSIUM 4.8 mmol/L (3.5-5.1)
[2020-07-31 10:30] LABS: ALBUMIN 3.1 g/dl (3.4-5.0); BLOOD UREA NITROGEN 41.6 mg/dL (7-18); MAGNESIUM 1.9 mg/dL (1.8-2.4)
[2020-07-31 10:33] LABS: BILIRUBIN,TOTAL 1.6 mg/dL (0.2-1); CREATININE 2.3 mg/dL (0.55-1.3); PHOSPHOROUS 2.6 mg/dL (2.5-4.9)
[2020-07-31 10:35] LABS: TOT PROT 7.8 g/dl (6.4-8.2)
[2020-07-31 10:38] LABS: CALCIUM 9.3 mg/dL (8.5-10.1)
[2020-07-31] MEDS ORDERED: INSULIN (NOVOLOG) ASPART 100 UNITS/ML 10ML VIAL ONE (11:09)
[2020-07-31 13:59] VITALS: BMI 33.5
[2020-07-31 14:09] LABS: ANISOCYTOSIS 1+; MACROCYTOSIS 1+; PLATELET ESTIMATE INCREASED; TOXIC GRANULATION 2+
[2020-07-31] MEDS ORDERED: oxyCODONE HCL 5 MG TABLET PO ONE (23:15)
[2020-07-31] MEDS: ATORVASTATIN CA 80 MG TABLET (FP) PO SCH (23:47)
[2020-08-01 01:20] LABS: HEMATOCRIT 22.5 % (35.4-49); HEMOGLOBIN 7.2 GM/dL (11.7-16.9); MCH 29.2 pg (25.7-33.7); MEAN CELL VOLUME 91.2 fl (80-96); MEAN PLT VOLUME 7.2 fl (7.5-11.1); PLATELET COUNT 552 K/MM3 (134-434); RBC 2.47 M/mm3 (4.00-5.60); RDW 14.9 % (11.9-15.9); WHITE BLOOD COUNT 20.2 K/mm3 (4.0-10.0)
[2020-08-01] MEDS: INSULIN SLIDING SCALE (NOVOLOG) 1 VIAL SQ SCH ×4 (06:11→21:51)
[2020-08-01] MEDS: INSULIN (LEVEMIR) 100 UNITS/ML UNITS SQ SCH ×2 (06:13→17:29)
[2020-08-01] MEDS: INSULIN (NOVOLOG) ASPART 100 UNITS/ML 10ML VIAL SQ SCH ×2 (07:33→17:30)
[2020-08-01] MEDS: MULTIVITAMINS (DAILY MVI) TABLET (FP) PO SCH (09:18)
[2020-08-01] MEDS: predniSONE 20 MG TABLET (UD) PO SCH (09:18)
[2020-08-01] MEDS: CLOPIDOGREL BISULFATE 75 MG TABLET (FP) PO SCH (09:18)
[2020-08-01] MEDS: THIAMINE HCL 100 MG TABLET (FP) PO SCH (09:18)
[2020-08-01] MEDS: metoPROLOL SUCCINATE 25 MG TAB.SR.24H (FP) PO SCH (09:18)
[2020-08-01] MEDS: FOLIC ACID 1 MG TABLET (FP) PO SCH (09:18)
[2020-08-01] MEDS: PANTOPRAZOLE 20 MG TABLET PO SCH (09:18)
[2020-08-01 09:43] LABS: BASO % 0.3 % (0-2.0); EOS % 0.4 % (0-4.5); HEMATOCRIT 21.9 % (35.4-49); HEMOGLOBIN 7.1 GM/dL (11.7-16.9); LYMPH % 14.1 % (8-40); MCH 29.6 pg (25.7-33.7); MCHC 32.5 g/dl (32.0-35.9); MEAN PLT VOLUME 7.3 fl (7.5-11.1); MONO % 6.4 % (3.8-10.2); NEUT % 78.8 % (42.8-82.8); PLATELET COUNT 572 K/MM3 (134-434); RBC 2.41 M/mm3 (4.00-5.60); RDW 14.7 % (11.9-15.9); WHITE BLOOD COUNT 20.9 K/mm3 (4.0-10.0)
[2020-08-01] MEDS ORDERED: DIVALPROEX SODIUM 125 MG TABLET E.C. PO SCH (10:00)
[2020-08-01 10:05] LABS: POTASSIUM 4.7 mmol/L (3.5-5.1)
[2020-08-01 10:14] LABS: ALBUMIN 3.2 g/dl (3.4-5.0); BLOOD UREA NITROGEN 47.1 mg/dL (7-18)
[2020-08-01 10:15] LABS: CALCIUM 9.7 mg/dL (8.5-10.1)
[2020-08-01 10:17] LABS: CREATININE 2.2 mg/dL (0.55-1.3); PHOSPHOROUS 3.4 mg/dL (2.5-4.9)
[2020-08-01 10:19] LABS: BILIRUBIN,TOTAL 1.3 mg/dL (0.2-1)
[2020-08-01 11:00] LABS: HIV INTERPRETATION NEGATIVE (NEGATIVE)
[2020-08-01] MEDS: ACETAMINOPHEN 325 MG TABLET (FP) PO PRN (12:22)
[2020-08-01] MEDS ORDERED: traMADol HCL 50 MG TABLET PO ONE (12:45)
[2020-08-01 13:53] LABS: ANISOCYTOSIS 2+; MACROCYTOSIS 1+; PLATELET ESTIMATE INCREASED; TARGET CELLS 1+
[2020-08-01] MEDS: ATORVASTATIN CA 80 MG TABLET (FP) PO SCH (21:50)
[2020-08-01] MEDS ORDERED: MIRTAZAPINE 15 MG TABLET (FP) PO SCH (22:00)
[2020-08-02] MEDS: INSULIN SLIDING SCALE (NOVOLOG) 1 VIAL SQ SCH ×4 (06:58→21:10)
[2020-08-02] MEDS: INSULIN (LEVEMIR) 100 UNITS/ML UNITS SQ SCH ×2 (07:31→17:46)
[2020-08-02] MEDS: INSULIN (NOVOLOG) ASPART 100 UNITS/ML 10ML VIAL SQ SCH ×2 (08:25→17:46)
[2020-08-02] MEDS: predniSONE 20 MG TABLET (UD) PO SCH (09:49)
[2020-08-02] MEDS: FOLIC ACID 1 MG TABLET (FP) PO SCH (09:49)
[2020-08-02] MEDS: PANTOPRAZOLE 20 MG TABLET PO SCH (09:49)
[2020-08-02] MEDS: CLOPIDOGREL BISULFATE 75 MG TABLET (FP) PO SCH (09:49)
[2020-08-02] MEDS: MULTIVITAMINS (DAILY MVI) TABLET (FP) PO SCH (09:49)
[2020-08-02] MEDS: THIAMINE HCL 100 MG TABLET (FP) PO SCH (09:49)
[2020-08-02] MEDS: metoPROLOL SUCCINATE 25 MG TAB.SR.24H (FP) PO SCH (09:49)
[2020-08-02] MEDS ORDERED: INSULIN (NOVOLOG) ASPART 100 UNITS/ML 10ML VIAL ONE (20:55)
[2020-08-02] MEDS: ATORVASTATIN CA 80 MG TABLET (FP) PO SCH (21:09)
[2020-08-03] MEDS: INSULIN (NOVOLOG) ASPART 100 UNITS/ML 10ML VIAL SQ SCH ×2 (06:11→17:25)
[2020-08-03] MEDS: INSULIN (LEVEMIR) 100 UNITS/ML UNITS SQ SCH ×2 (06:11→17:24)
[2020-08-03] MEDS: INSULIN SLIDING SCALE (NOVOLOG) 1 VIAL SQ SCH ×4 (06:13→21:27)
[2020-08-03 09:31] LABS: BASO % 0.5 % (0-2.0); EOS % 0.6 % (0-4.5); HEMATOCRIT 23.5 % (35.4-49); HEMOGLOBIN 7.5 GM/dL (11.7-16.9); LYMPH % 23.4 % (8-40); MCH 29.5 pg (25.7-33.7); MCHC 32.1 g/dl (32.0-35.9); MEAN PLT VOLUME 6.9 fl (7.5-11.1); MONO % 6.9 % (3.8-10.2); NEUT % 68.6 % (42.8-82.8); PLATELET COUNT 603 K/MM3 (134-434); RBC 2.55 M/mm3 (4.00-5.60); RDW 15.7 % (11.9-15.9); WHITE BLOOD COUNT 19.7 K/mm3 (4.0-10.0)
[2020-08-03 09:55] LABS: POTASSIUM 4.6 mmol/L (3.5-5.1)
[2020-08-03 09:57] LABS: ALBUMIN 3.5 g/dl (3.4-5.0); BLOOD UREA NITROGEN 47.9 mg/dL (7-18); CALCIUM 9.6 mg/dL (8.5-10.1)
[2020-08-03 10:01] LABS: BILIRUBIN,TOTAL 0.9 mg/dL (0.2-1); CREATININE 2.1 mg/dL (0.55-1.3); TOT PROT 8.3 g/dl (6.4-8.2)
[2020-08-03] MEDS: predniSONE 20 MG TABLET (UD) PO SCH (10:05)
[2020-08-03] MEDS: CLOPIDOGREL BISULFATE 75 MG TABLET (FP) PO SCH (10:05)
[2020-08-03] MEDS: PANTOPRAZOLE 20 MG TABLET PO SCH (10:05)
[2020-08-03] MEDS: MULTIVITAMINS (DAILY MVI) TABLET (FP) PO SCH (10:05)
[2020-08-03] MEDS: FOLIC ACID 1 MG TABLET (FP) PO SCH (10:05)
[2020-08-03] MEDS: THIAMINE HCL 100 MG TABLET (FP) PO SCH (10:05)
[2020-08-03] MEDS: metoPROLOL SUCCINATE 25 MG TAB.SR.24H (FP) PO SCH (10:05)
[2020-08-03 10:08] LABS: ANTIGLOMERULAR BASEMENT MEN.AB 13 units (0-20)
[2020-08-03] MEDS ORDERED: INSULIN (NOVOLOG) ASPART 100 UNITS/ML 10ML VIAL ONE (20:48)
[2020-08-03] MEDS: ATORVASTATIN CA 80 MG TABLET (FP) PO SCH (21:27)
[2020-08-04] MEDS ORDERED: amLODIPine BESYLATE 5 MG TABLET (FP) PO ONE (05:37)
[2020-08-04] MEDS: INSULIN (LEVEMIR) 100 UNITS/ML UNITS SQ SCH ×2 (06:22→18:09)
[2020-08-04] MEDS: INSULIN SLIDING SCALE (NOVOLOG) 1 VIAL SQ SCH ×4 (06:23→22:01)
[2020-08-04] MEDS: INSULIN (NOVOLOG) ASPART 100 UNITS/ML 10ML VIAL SQ SCH ×2 (06:23→18:09)
[2020-08-04 10:44] LABS: BASO % 0.4 % (0-2.0); EOS % 0.7 % (0-4.5); HEMATOCRIT 24.5 % (35.4-49); HEMOGLOBIN 7.6 GM/dL (11.7-16.9); LYMPH % 24.7 % (8-40); MCH 29.1 pg (25.7-33.7); MCHC 31.2 g/dl (32.0-35.9); MEAN CELL VOLUME 93.3 fl (80-96); MEAN PLT VOLUME 7.2 fl (7.5-11.1); MONO % 7.7 % (3.8-10.2); NEUT % 66.5 % (42.8-82.8); PLATELET COUNT 568 K/MM3 (134-434); RBC 2.63 M/mm3 (4.00-5.60); RDW 16.6 % (11.9-15.9); WHITE BLOOD COUNT 19.8 K/mm3 (4.0-10.0)
[2020-08-04] MEDS: metoPROLOL SUCCINATE 25 MG TAB.SR.24H (FP) PO SCH (10:46)
[2020-08-04] MEDS: CLOPIDOGREL BISULFATE 75 MG TABLET (FP) PO SCH (10:46)
[2020-08-04] MEDS: predniSONE 20 MG TABLET (UD) PO SCH (10:46)
[2020-08-04] MEDS: PANTOPRAZOLE 20 MG TABLET PO SCH (10:46)
[2020-08-04] MEDS: FOLIC ACID 1 MG TABLET (FP) PO SCH (10:46)
[2020-08-04] MEDS: MULTIVITAMINS (DAILY MVI) TABLET (FP) PO SCH (10:46)
[2020-08-04] MEDS: THIAMINE HCL 100 MG TABLET (FP) PO SCH (10:46)
[2020-08-04 11:03] LABS: POTASSIUM 4.1 mmol/L (3.5-5.1)
[2020-08-04 11:05] LABS: ALBUMIN 3.4 g/dl (3.4-5.0); BLOOD UREA NITROGEN 49.6 mg/dL (7-18); CALCIUM 9.9 mg/dL (8.5-10.1)
[2020-08-04 11:09] LABS: CREATININE 2.1 mg/dL (0.55-1.3)
[2020-08-04 11:10] LABS: BILIRUBIN,TOTAL 0.8 mg/dL (0.2-1); TOT PROT 8.1 g/dl (6.4-8.2)
[2020-08-04 14:07] LABS: ATYPICAL pANCA <1:20 titer (Neg:<1:20); C-ANCA <1:20 titer (Neg:<1:20)
[2020-08-04] MEDS: ATORVASTATIN CA 80 MG TABLET (FP) PO SCH (22:01)
[2020-08-05] MEDS: INSULIN (LEVEMIR) 100 UNITS/ML UNITS SQ SCH ×2 (06:06→17:32)
[2020-08-05] MEDS: INSULIN (NOVOLOG) ASPART 100 UNITS/ML 10ML VIAL SQ SCH ×2 (06:07→17:33)
[2020-08-05] MEDS: INSULIN SLIDING SCALE (NOVOLOG) 1 VIAL SQ SCH ×4 (06:07→22:31)
[2020-08-05] MEDS: MULTIVITAMINS (DAILY MVI) TABLET (FP) PO SCH (09:49)
[2020-08-05] MEDS: predniSONE 20 MG TABLET (UD) PO SCH (09:49)
[2020-08-05] MEDS: FOLIC ACID 1 MG TABLET (FP) PO SCH (09:49)
[2020-08-05] MEDS: metoPROLOL SUCCINATE 25 MG TAB.SR.24H (FP) PO SCH (09:49)
[2020-08-05] MEDS: PANTOPRAZOLE 20 MG TABLET PO SCH (09:49)
[2020-08-05] MEDS: CLOPIDOGREL BISULFATE 75 MG TABLET (FP) PO SCH (09:49)
[2020-08-05] MEDS: THIAMINE HCL 100 MG TABLET (FP) PO SCH (09:50)
[2020-08-05 11:19] LABS: HEMATOCRIT 25.4 % (35.4-49); HEMOGLOBIN 8.1 GM/dL (11.7-16.9); MCH 29.8 pg (25.7-33.7); MEAN CELL VOLUME 93.2 fl (80-96); PLATELET COUNT 557 K/MM3 (134-434); RBC 2.73 M/mm3 (4.00-5.60); RDW 17.5 % (11.9-15.9); WHITE BLOOD COUNT 18.3 K/mm3 (4.0-10.0)
[2020-08-05 11:51] LABS: POTASSIUM 4.2 mmol/L (3.5-5.1)
[2020-08-05 11:53] LABS: ALBUMIN 3.3 g/dl (3.4-5.0); CALCIUM 9.2 mg/dL (8.5-10.1)
[2020-08-05 11:54] LABS: BLOOD UREA NITROGEN 45.4 mg/dL (7-18)
[2020-08-05 11:58] LABS: BILIRUBIN,TOTAL 0.7 mg/dL (0.2-1); TOT PROT 7.8 g/dl (6.4-8.2)
[2020-08-05] MEDS: ATORVASTATIN CA 80 MG TABLET (FP) PO SCH (22:30)
[2020-08-06] MEDS: INSULIN SLIDING SCALE (NOVOLOG) 1 VIAL SQ SCH ×4 (06:27→21:36)
[2020-08-06] MEDS: INSULIN (LEVEMIR) 100 UNITS/ML UNITS SQ SCH ×2 (07:31→17:02)
[2020-08-06 08:21] LABS: BASO % 0.4 % (0-2.0); EOS % 0.5 % (0-4.5); HEMATOCRIT 24.2 % (35.4-49); LYMPH % 23.6 % (8-40); MCH 30.8 pg (25.7-33.7); MEAN CELL VOLUME 93.5 fl (80-96); MEAN PLT VOLUME 7.1 fl (7.5-11.1); MONO % 7.7 % (3.8-10.2); NEUT % 67.8 % (42.8-82.8); PLATELET COUNT 558 K/MM3 (134-434); RBC 2.59 M/mm3 (4.00-5.60); RDW 17.7 % (11.9-15.9); WHITE BLOOD COUNT 17.4 K/mm3 (4.0-10.0)
[2020-08-06] MEDS: INSULIN (NOVOLOG) ASPART 100 UNITS/ML 10ML VIAL SQ SCH ×2 (08:26→17:02)
[2020-08-06 08:47] LABS: POTASSIUM 4.6 mmol/L (3.5-5.1)
[2020-08-06 08:55] LABS: CREATININE 2.1 mg/dL (0.55-1.3)
[2020-08-06 08:57] LABS: BILIRUBIN,TOTAL 0.8 mg/dL (0.2-1); TOT PROT 7.8 g/dl (6.4-8.2)
[2020-08-06 09:14] LABS: CALCIUM 9.6 mg/dL (8.5-10.1)
[2020-08-06 09:16] LABS: BLOOD UREA NITROGEN 47.4 mg/dL (7-18)
[2020-08-06 09:18] LABS: ALBUMIN 3.4 g/dl (3.4-5.0)
[2020-08-06 09:38] LABS: PH,URINE 5.5 (5.0-8.0); URINE APPEARANCE CLEAR; URINE BILIRUBIN NEGATIVE (NEGATIVE); URINE COLOR YELLOW; URINE GLUCOSE (UA) NEGATIVE (NEGATIVE); URINE KETONE NEGATIVE (NEGATIVE); URINE LEUK ESTERASE NEGATIVE (NEGATIVE); URINE NITRITE NEGATIVE (NEGATIVE); URINE PROTEIN TRACE (NEGATIVE)
[2020-08-06] MEDS: FOLIC ACID 1 MG TABLET (FP) PO SCH (10:00)
[2020-08-06] MEDS: PANTOPRAZOLE 20 MG TABLET PO SCH (10:00)
[2020-08-06] MEDS: THIAMINE HCL 100 MG TABLET (FP) PO SCH (10:00)
[2020-08-06] MEDS: CLOPIDOGREL BISULFATE 75 MG TABLET (FP) PO SCH (10:00)
[2020-08-06] MEDS: MULTIVITAMINS (DAILY MVI) TABLET (FP) PO SCH (10:00)
[2020-08-06] MEDS: metoPROLOL SUCCINATE 25 MG TAB.SR.24H (FP) PO SCH (10:00)
[2020-08-06] MEDS: predniSONE 20 MG TABLET (UD) PO SCH (10:00)
[2020-08-06] MEDS ORDERED: SODIUM CHLORIDE 0.45% 1,000 ML IV SCH (14:15)
[2020-08-06] MEDS: ATORVASTATIN CA 80 MG TABLET (FP) PO SCH (21:38)
[2020-08-07] MEDS: INSULIN SLIDING SCALE (NOVOLOG) 1 VIAL SQ SCH ×3 (06:03→16:42)
[2020-08-07] MEDS: INSULIN (LEVEMIR) 100 UNITS/ML UNITS SQ SCH ×2 (06:04→16:42)
[2020-08-07] MEDS: INSULIN (NOVOLOG) ASPART 100 UNITS/ML 10ML VIAL SQ SCH ×2 (08:08→16:43)
[2020-08-07 09:14] LABS: BASO % 0.4 % (0-2.0); HEMATOCRIT 27.7 % (35.4-49); HEMOGLOBIN 8.8 GM/dL (11.7-16.9); LYMPH % 25.5 % (8-40); MCHC 31.9 g/dl (32.0-35.9); MEAN CELL VOLUME 94.2 fl (80-96); MEAN PLT VOLUME 7.3 fl (7.5-11.1); NEUT % 66.1 % (42.8-82.8); PLATELET COUNT 584 K/MM3 (134-434); RBC 2.94 M/mm3 (4.00-5.60); RDW 17.6 % (11.9-15.9)
[2020-08-07 09:25] LABS: POTASSIUM 4.5 mmol/L (3.5-5.1)
[2020-08-07] MEDS: CLOPIDOGREL BISULFATE 75 MG TABLET (FP) PO SCH (09:26)
[2020-08-07] MEDS: THIAMINE HCL 100 MG TABLET (FP) PO SCH (09:26)
[2020-08-07] MEDS: FOLIC ACID 1 MG TABLET (FP) PO SCH (09:26)
[2020-08-07] MEDS: MULTIVITAMINS (DAILY MVI) TABLET (FP) PO SCH (09:26)
[2020-08-07] MEDS: PANTOPRAZOLE 20 MG TABLET PO SCH (09:26)
[2020-08-07] MEDS: predniSONE 20 MG TABLET (UD) PO SCH (09:26)
[2020-08-07] MEDS: metoPROLOL SUCCINATE 25 MG TAB.SR.24H (FP) PO SCH (09:26)
[2020-08-07 09:27] LABS: ALBUMIN 3.6 g/dl (3.4-5.0); CALCIUM 9.5 mg/dL (8.5-10.1)
[2020-08-07 09:31] LABS: CREATININE 1.9 mg/dL (0.55-1.3)
[2020-08-07 09:32] LABS: BILIRUBIN,TOTAL 0.9 mg/dL (0.2-1); TOT PROT 8.3 g/dl (6.4-8.2)
[2020-08-07 15:47] VITALS: BP 165/95; PULSE 68; TEMP 98.1
== END 2020-08-07 16:54 | disposition home or self-care (01) | DRG 682 ==
LOC: JER 17:56 → JERBED 23:45 → JICU 07-21 01:35 → J5S 07-21 17:39
PROVIDERS: ADMIT Internal Medicine Pulmonary Disease; ATTEND Internal Medicine
DX: N17.9 Acute kidney failure, unspecified (principal); E11.00 Type 2 diabetes mellitus with hyperosmolarity without nonketotic hyperglycemic-hyperosmolar coma (NKHHC); E87.0 Hyperosmolality and hypernatremia; D58.9 Hereditary hemolytic anemia, unspecified; E87.1 Hypo-osmolality and hyponatremia; I25.10 Atherosclerotic heart disease of native coronary artery without angina pectoris; M10.9 Gout, unspecified; E86.0 Dehydration; Z95.5 Presence of coronary angioplasty implant and graft; D64.9 Anemia, unspecified; D72.829 Elevated white blood cell count, unspecified; M17.11 Unilateral primary osteoarthritis, right knee; I12.9 Hypertensive chronic kidney disease with stage 1 through stage 4 chronic kidney disease, or unspecified chronic kidney disease; N18.9 Chronic kidney disease, unspecified
CPT/HCPCS: 36415; 70450-TC; 71045-TC-FY; 73560-TC-RT-FY; 74176-TC; 76775-TC; 76856-TC; 80048; 80053; 81003; 82010; 82248; 82272; 82436; 82550; 82565; 82607; 82728; 82746; 82784; 82803; 82955; 82962; 82977; 83010; 83036; 83516; 83520; 83540; 83550; 83615; 83735; 83930; 83935; 84100; 84133; 84155; 84156; 84165; 84166; 84300; 84443; 84466; 84484; 84550; 85025; 85027; 85045; 85384; 85610; 85651; 85730; 86038; 86140; 86162; 86225; 86256; 86308; 86850; 86880; 86900; 86901; 86922; 87040; 87070; 87075; 87086; 87205; 87389; 88300-TC; 90670; 93005; 93010; 93970-TC; 97116-GP; 97162-GP; 99291; C9803; G0008; G0009; J1644; J3480; Q2036; U0003

== ENCOUNTER 2021-10-24 23:12 | Emergency (ER) | payer OTHER ==
[2021-10-24 23:34] VITALS: BP 117/63; PULSE 68; TEMP 97.7; BMI 32.1
[2021-10-25 00:44] LABS: BASO % 1.5 % (0-2.0); EOS % 2.4 % (0-4.5); HEMATOCRIT 34.4 % (35.4-49); HEMOGLOBIN 11.2 GM/dL (11.7-16.9); LYMPH % 23.5 % (8-40); MCH 30.5 pg (25.7-33.7); MCHC 32.5 g/dl (32.0-35.9); MEAN CELL VOLUME 94.1 fl (80-96); MEAN PLT VOLUME 7.8 fl (7.5-11.1); MONO % 12.2 % (3.8-10.2); NEUT % 60.4 % (42.8-82.8); PLATELET COUNT 345 10^3/uL (134-434); RBC 3.66 M/mm3 (4.00-5.60); RDW 13.6 % (11.9-15.9); WHITE BLOOD COUNT 8.7 K/mm3 (4.0-10.0)
== END 2021-10-25 02:25 | disposition home or self-care (01) ==
LOC: JER 23:12
DX: R04.0 Epistaxis (principal)
CPT/HCPCS: 36415; 85025; 99283-25

== ENCOUNTER 2021-11-07 01:14 | Emergency (ER) | payer SELFPAY ==
[2021-11-07 01:26] VITALS: BP 174/77; PULSE 86; TEMP 97.3; BMI 32.8
[2021-11-07] MEDS ORDERED: AMOX TR/POT CLAV 875MG/125MG TABLETS (FP) PO ONE (03:57)
[2021-11-07] MEDS ORDERED: AMOX TR/POT CLAV 875MG/125MG TABLETS (FP) ONE (04:03)
== END 2021-11-07 04:12 | disposition home or self-care (01) ==
LOC: JER 01:14
DX: R04.0 Epistaxis (principal)
CPT/HCPCS: 99283-25

== ENCOUNTER 2022-04-05 04:22 | Emergency (ER) | payer OTHER ==
[2022-04-05 04:32] VITALS: BP 144/82; PULSE 78; RESP 18; TEMP 98; BMI 32.1
[2022-04-05] MEDS ORDERED: OXYMETAZOLINE 0.05% NASAL SOLUTION 15 ML BOTTLE NS ONE (05:01)
[2022-04-05] MEDS ORDERED: ONDANSETRON 4 MG/2 ML VIAL ONE (05:05)
[2022-04-05] MEDS ORDERED: ONDANSETRON 4 MG/2 ML VIAL IVPUSH ONE (06:05)
[2022-04-05 06:57] LABS: BASO % 0.6 % (0-2.0); EOS % 2.3 % (0-4.5); HEMATOCRIT 33.3 % (35.4-49); HEMOGLOBIN 10.7 GM/dL (11.7-16.9); LYMPH % 38.3 % (8-40); MCHC 32.2 g/dl (32.0-35.9); MEAN PLT VOLUME 8.2 fl (7.5-11.1); MONO % 10.3 % (3.8-10.2); NEUT % 48.5 % (42.8-82.8); PLATELET COUNT 388 10^3/uL (134-434); RBC 3.58 M/mm3 (4.00-5.60); RDW 13.6 % (11.9-15.9); WHITE BLOOD COUNT 12.4 K/mm3 (4.0-10.0)
[2022-04-05 07:02] LABS: ALBUMIN 3.9 g/dl (3.4-5.0); BLOOD UREA NITROGEN 35.8 mg/dL (7-18)
[2022-04-05 07:05] LABS: CREATININE 1.8 mg/dL (0.55-1.3)
[2022-04-05 07:08] LABS: BILIRUBIN,TOTAL 0.4 mg/dL (0.2-1); TOT PROT 7.9 g/dl (6.4-8.2)
== END 2022-04-05 08:00 | disposition home or self-care (01) ==
LOC: JER 04:22
PROC: 3E033NZ Introduction of Analgesics, Hypnotics, Sedatives into Peripheral Vein, Percutaneous Approach (ICD-10-PCS; principal; 2022-04-05)
DX: R04.0 Epistaxis (principal)
CPT/HCPCS: 36415; 80053; 85025; 99283-25

== ENCOUNTER 2022-04-05 07:59 | Emergency (ER) | payer OTHER ==
[2022-04-05 08:14] VITALS: BP 130/72; PULSE 69; RESP 17; TEMP 97.7; BMI 32.1
== END 2022-04-05 10:13 | disposition home or self-care (01) ==
LOC: JER 07:59
PROC: 3E033NZ Introduction of Analgesics, Hypnotics, Sedatives into Peripheral Vein, Percutaneous Approach (ICD-10-PCS; principal; 2022-04-05)
DX: R04.0 Epistaxis (principal)
CPT/HCPCS: 99283-25

== ENCOUNTER 2022-04-07 14:19 | Emergency (ER) | payer OTHER ==
[2022-04-07 14:25] VITALS: BP 140/72; PULSE 64; RESP 18; TEMP 98.3; BMI 32.1
== END 2022-04-07 15:50 | disposition home or self-care (01) ==
LOC: JERFT 14:19 → JER 14:19 → JERFT 15:50
PROC: 3E033NZ Introduction of Analgesics, Hypnotics, Sedatives into Peripheral Vein, Percutaneous Approach (ICD-10-PCS; principal; 2022-04-07)
DX: Z48.01 Encounter for change or removal of surgical wound dressing (principal)
CPT/HCPCS: 99283-25

== ENCOUNTER 2022-04-10 17:51 | Emergency (ER) | payer OTHER ==
[2022-04-10 18:19] VITALS: BP 125/75; PULSE 85; RESP 18; TEMP 98; BMI 32.5
[2022-04-10] MEDS ORDERED: LIDOCAINE HCL 1%, 10 MG/ML (20ML VIAL) ONE (18:41)
[2022-04-10] MEDS ORDERED: OXYMETAZOLINE 0.05% NASAL SOLUTION 15 ML BOTTLE NS ONE (18:52)
[2022-04-10] MEDS ORDERED: LIDOCAINE HCL 1%, 10 MG/ML (50 mL VIAL) SQ ONE (19:42)
== END 2022-04-10 20:22 | disposition home or self-care (01) ==
LOC: JER 17:51
DX: R04.0 Epistaxis (principal)
CPT/HCPCS: 99283-25

== ENCOUNTER 2022-04-21 19:31 | Emergency (ER) | payer OTHER ==
[2022-04-21 20:42] VITALS: BP 105/62; PULSE 83; RESP 18; TEMP 98; BMI 32.1
== END 2022-04-21 23:20 | disposition home or self-care (01) ==
LOC: JER 19:31
DX: R04.0 Epistaxis (principal)
CPT/HCPCS: 99283-25

== ENCOUNTER 2022-04-22 08:25 | Emergency (ER) | payer OTHER ==
[2022-04-22 09:11] VITALS: BP 122/75; PULSE 77; RESP 18; TEMP 97.9; BMI 32.1
[2022-04-22] MEDS ORDERED: OXYMETAZOLINE 0.05% NASAL SOLUTION 15 ML BOTTLE NS PRN (11:46)
[2022-04-22] MEDS ORDERED: AMOX TR/POT CLAV 875MG/125MG TABLETS (FP) PO ONE (14:07)
[2022-04-22] MEDS ORDERED: AMOX TR/POT CLAV 875MG/125MG TABLETS (FP) ONE (14:12)
== END 2022-04-22 12:52 | disposition home or self-care (01) ==
LOC: JERFT 08:25 → JER 08:25 → JERFT 12:52
DX: R04.0 Epistaxis (principal)
CPT/HCPCS: 99283-25

== ENCOUNTER 2022-04-26 16:34 | Emergency (ER) | payer OTHER ==
[2022-04-26 16:40] VITALS: BMI 32.1
[2022-04-26] MEDS ORDERED: LABETALOL HCL 5 MG/1 ML (100MG/20 ML VIAL) IVPUSH ONE (17:24)
[2022-04-26] MEDS ORDERED: TRANEXAMIC ACID 1000 MG/10 ML VIAL IVPUSH ONE (17:27)
[2022-04-26] MEDS ORDERED: TRANEXAMIC ACID 1000 MG/10 ML VIAL ONE (17:27)
[2022-04-27 01:56] VITALS: BP 155/93; PULSE 80; RESP 18; TEMP 98.4
== END 2022-04-27 02:00 | disposition short-term general hospital (02) ==
LOC: JER 16:34
PROC: 3E033GC Introduction of Other Therapeutic Substance into Peripheral Vein, Percutaneous Approach (ICD-10-PCS; principal; 2022-04-26)
DX: R04.0 Epistaxis (principal)
CPT/HCPCS: 0241U-QW; 99284-25

== ENCOUNTER 2022-05-12 03:36 | Inpatient (IN) | payer OTHER ==
[2022-05-12] MEDS ORDERED: ACETAMINOPHEN 1000 MG/100 ML BAG IVPB ONE (05:55)
[2022-05-12] MEDS ORDERED: ACETAMINOPHEN INJECTION 100 ML IVPB ONE (06:13)
[2022-05-12 07:24] LABS: BLOOD UREA NITROGEN 29.6 mg/dL (7-18); CALCIUM 9.7 mg/dL (8.5-10.1)
[2022-05-12 07:25] LABS: ALBUMIN 3.5 g/dl (3.4-5.0)
[2022-05-12 07:29] LABS: BILIRUBIN,TOTAL 0.2 mg/dL (0.2-1)
[2022-05-12 07:30] LABS: BASO % 1.2 % (0-2.0); EOS % 4.2 % (0-4.5); HEMATOCRIT 28.9 % (35.4-49); LYMPH % 26.9 % (8-40); MCHC 31.1 g/dl (32.0-35.9); MEAN PLT VOLUME 8.4 fl (7.5-11.1); MONO % 9.5 % (3.8-10.2); NEUT % 58.2 % (42.8-82.8); PLATELET COUNT 480 10^3/uL (134-434); RBC 3.21 M/mm3 (4.00-5.60); RDW 16.4 % (11.9-15.9); WHITE BLOOD COUNT 12.6 K/mm3 (4.0-10.0)
[2022-05-12] MEDS ORDERED: SODIUM CHLORIDE 1,000 ML IV STA (07:32)
[2022-05-12 09:34] LABS: EPI CELLS 6 /uL (0-25.1); HYALINE CASTS 0 /uL (0-3.1); URINE APPEARANCE CLEAR; URINE BACTERIA 1 /uL (0-1359); URINE BILIRUBIN NEGATIVE (NEGATIVE); URINE COLOR YELLOW; URINE GLUCOSE (UA) NEGATIVE (NEGATIVE); URINE KETONE NEGATIVE (NEGATIVE); URINE LEUK ESTERASE TRACE (NEGATIVE); URINE NITRITE NEGATIVE (NEGATIVE); URINE PROTEIN TRACE (NEGATIVE); URINE RBC 21 /uL (0-23.9); URINE UROBILINOGEN 0.2 mg/dL (0.2-1.0); URINE WBC 62 /uL (0-25.8)
[2022-05-12] MEDS ORDERED: morphine CARPU-JECT 4 MG/1 ML DISP.SYRIN IVPUSH ONE (11:41)
[2022-05-12] MEDS ORDERED: morphine SULFATE 4 MG/ML VIAL ONE (12:49)
[2022-05-12 13:53] VITALS: BMI 32.3
[2022-05-12] MEDS: INSULIN (NOVOLOG) ASPART 100 UNITS/ML 10ML VIAL SQ SCH ×3 (16:38→16:43)
[2022-05-12] MEDS ORDERED: ATORVASTATIN CA 80 MG TABLET (FP) PO SCH (22:00)
[2022-05-12] MEDS: HEPARIN NA (PORCINE) 5,000 UNITS/ML 1ML VIAL SQ SCH (22:01)
[2022-05-12] MEDS: INSULIN (LEVEMIR) 100 UNITS/ML UNITS SQ SCH (22:02)
[2022-05-13] MEDS: INSULIN (NOVOLOG) ASPART 100 UNITS/ML 10ML VIAL SQ SCH ×2 (06:38→12:00)
[2022-05-13] MEDS: ACETAMINOPHEN 1000 MG/100 ML BAG IVPB PRN ×2 (08:33→21:53)
[2022-05-13 08:41] LABS: BASO % 0.8 % (0-2.0); EOS % 3.8 % (0-4.5); HEMATOCRIT 29.8 % (35.4-49); HEMOGLOBIN 9.3 GM/dL (11.7-16.9); MCH 27.9 pg (25.7-33.7); MCHC 31.1 g/dl (32.0-35.9); MEAN CELL VOLUME 89.9 fl (80-96); MEAN PLT VOLUME 8.1 fl (7.5-11.1); MONO % 11.3 % (3.8-10.2); NEUT % 68.1 % (42.8-82.8); PLATELET COUNT 492 10^3/uL (134-434); RBC 3.32 M/mm3 (4.00-5.60); RDW 16.4 % (11.9-15.9); WHITE BLOOD COUNT 9.5 K/mm3 (4.0-10.0)
[2022-05-13 09:01] LABS: CALCIUM 9.5 mg/dL (8.5-10.1)
[2022-05-13 09:02] LABS: BLOOD UREA NITROGEN 24.4 mg/dL (7-18); MAGNESIUM 1.3 mg/dL (1.8-2.4)
[2022-05-13 09:05] LABS: CREATININE 1.6 mg/dL (0.55-1.3); PHOSPHOROUS 2.5 mg/dL (2.5-4.9)
[2022-05-13] MEDS ORDERED: ASPIRIN COATED 81 MG TABLET.EC PO SCH (10:00)
[2022-05-13] MEDS ORDERED: ALLOPURINOL 100 MG TABLET (FP) PO SCH (10:00)
[2022-05-13] MEDS: HEPARIN NA (PORCINE) 5,000 UNITS/ML 1ML VIAL SQ SCH ×3 (10:24→21:51)
[2022-05-13] MEDS: metoPROLOL SUCCINATE 25 MG TAB.SR.24H (FP) PO SCH (10:24)
[2022-05-13] MEDS: INSULIN (LEVEMIR) 100 UNITS/ML UNITS SQ SCH (12:00)
[2022-05-13] MEDS ORDERED: MAGNESIUM SULF 50% (8.12 MEQ/2 ML-1 GM VIAL) IVPB ONE (12:30)
[2022-05-13] MEDS: CYCLOBENZAPRINE HCL 5 MG TABLET PO SCH (13:29)
[2022-05-13] MEDS ORDERED: LIDOCAINE 5% TOPICAL PATCH TP SCH (19:00)
[2022-05-13] MEDS: LIDOCAINE 5% TOPICAL PATCH TP SCH (20:55)
[2022-05-13] MEDS: LIDOCAINE PATCH REMOVAL MC SCH (21:52)
[2022-05-13] MEDS: ATORVASTATIN CA 80 MG TABLET (FP) PO SCH (21:52)
[2022-05-14] MEDS: amLODIPine BESYLATE 10 MG TABLET (FP) PO SCH (09:23)
[2022-05-14] MEDS: metoPROLOL SUCCINATE 25 MG TAB.SR.24H (FP) PO SCH (09:23)
[2022-05-14] MEDS: ALLOPURINOL 100 MG TABLET (FP) PO SCH (09:23)
[2022-05-14] MEDS: CYCLOBENZAPRINE HCL 5 MG TABLET PO SCH (09:23)
[2022-05-14] MEDS: ASPIRIN 81 MG CHEWABLE TABLETS PO SCH (09:23)
[2022-05-14] MEDS: HEPARIN NA (PORCINE) 5,000 UNITS/ML 1ML VIAL SQ SCH ×3 (09:27→22:55)
[2022-05-14] MEDS: LIDOCAINE 5% TOPICAL PATCH TP SCH (10:57)
[2022-05-14] MEDS: POLYETHYLENE GLYCOL (HEALTHYLAX) 3350 17 GM PACKET PO SCH (11:45)
[2022-05-14 12:31] LABS: HEMOGLOBIN 9.9 GM/dL (11.7-16.9); MCH 27.9 pg (25.7-33.7); MEAN PLT VOLUME 7.7 fl (7.5-11.1); PLATELET COUNT 487 10^3/uL (134-434); RBC 3.55 M/mm3 (4.00-5.60); RDW 16.5 % (11.9-15.9); WHITE BLOOD COUNT 11.2 K/mm3 (4.0-10.0)
[2022-05-14 12:55] LABS: ALBUMIN 3.6 g/dl (3.4-5.0); BLOOD UREA NITROGEN 24.3 mg/dL (7-18); CALCIUM 9.8 mg/dL (8.5-10.1); MAGNESIUM 1.6 mg/dL (1.8-2.4)
[2022-05-14 12:58] LABS: CREATININE 1.6 mg/dL (0.55-1.3); PHOSPHOROUS 2.1 mg/dL (2.5-4.9)
[2022-05-14 13:00] LABS: BILIRUBIN,TOTAL 0.8 mg/dL (0.2-1); TOT PROT 8.5 g/dl (6.4-8.2)
[2022-05-14] MEDS ORDERED: NAPH,MB-DB/K PH,MBDB POWDER PACKET PO ONE (16:25)
[2022-05-14] MEDS ORDERED: MAGNESIUM SULF 50% (8.12 MEQ/2 ML-1 GM VIAL) IVPB ONE (16:25)
[2022-05-14] MEDS: ATORVASTATIN CA 80 MG TABLET (FP) PO SCH (22:33)
[2022-05-14] MEDS: LIDOCAINE PATCH REMOVAL MC SCH (22:37)
[2022-05-15] MEDS: CYCLOBENZAPRINE HCL 5 MG TABLET PO SCH (09:24)
[2022-05-15] MEDS: LIDOCAINE 5% TOPICAL PATCH TP SCH (09:24)
[2022-05-15] MEDS: HEPARIN NA (PORCINE) 5,000 UNITS/ML 1ML VIAL SQ SCH ×2 (09:24→22:11)
[2022-05-15] MEDS: ASPIRIN 81 MG CHEWABLE TABLETS PO SCH (09:24)
[2022-05-15] MEDS: ALLOPURINOL 100 MG TABLET (FP) PO SCH (09:25)
[2022-05-15] MEDS: metoPROLOL SUCCINATE 25 MG TAB.SR.24H (FP) PO SCH (09:25)
[2022-05-15] MEDS: amLODIPine BESYLATE 10 MG TABLET (FP) PO SCH (09:25)
[2022-05-15] MEDS ORDERED: SODIUM CHLORIDE 0.9% 1000 ML INFUS.BAG IV ONE (10:10)
[2022-05-15] MEDS ORDERED: ACETAMINOPHEN 1000 MG/100 ML BAG IVPB PRN (10:21)
[2022-05-15] MEDS: POLYETHYLENE GLYCOL (HEALTHYLAX) 3350 17 GM PACKET PO SCH (12:11)
[2022-05-15 12:49] LABS: INR 1.4 (0.83-1.09); PROTHROMBIN TIME (PATIENT) 16.1 SEC (9.7-13.0)
[2022-05-15 12:50] LABS: HEMATOCRIT 30.3 % (35.4-49); HEMOGLOBIN 9.2 GM/dL (11.7-16.9); MCH 27.7 pg (25.7-33.7); MCHC 30.4 g/dl (32.0-35.9); MEAN PLT VOLUME 8.3 fl (7.5-11.1); PLATELET COUNT 423 10^3/uL (134-434); RBC 3.33 M/mm3 (4.00-5.60); RDW 16.3 % (11.9-15.9); WHITE BLOOD COUNT 12.2 K/mm3 (4.0-10.0)
[2022-05-15 12:51] LABS: ACTIVATED PTT 29.6 SECONDS (25.2-36.5)
[2022-05-15 13:04] LABS: ALBUMIN 3.3 g/dl (3.4-5.0); BLOOD UREA NITROGEN 26.9 mg/dL (7-18); CALCIUM 9.1 mg/dL (8.5-10.1); MAGNESIUM 1.8 mg/dL (1.8-2.4)
[2022-05-15 13:07] LABS: CREATININE 2.2 mg/dL (0.55-1.3); PHOSPHOROUS 1.9 mg/dL (2.5-4.9)
[2022-05-15 13:09] LABS: BILIRUBIN,TOTAL 0.7 mg/dL (0.2-1); TOT PROT 7.9 g/dl (6.4-8.2)
[2022-05-15] MEDS ORDERED: NAPH,MB-DB/K PH,MBDB POWDER PACKET PO ONE ×2 (14:01→18:45)
[2022-05-15 18:38] LABS: COCAINE, UR NEGATIVE (NEGATIVE); URINE BARBITURATES NEGATIVE (NEGATIVE)
[2022-05-15 18:39] LABS: METHADONE, UR NEGATIVE (NEGATIVE); PHENCYCLIDINE,URINE NEGATIVE (NEGATIVE); URINE AMPHETAMINES NEGATIVE (NEGATIVE); URINE BENZODIAZEPINES NEGATIVE (NEGATIVE)
[2022-05-15 18:40] LABS: EPI CELLS 2 /uL (0-25.1); HYALINE CASTS 0 /uL (0-3.1); PH,URINE 5.5 (5.0-8.0); URINE APPEARANCE CLEAR; URINE BACTERIA 1684 /uL (0-1359); URINE BILIRUBIN NEGATIVE (NEGATIVE); URINE COLOR YELLOW; URINE GLUCOSE (UA) NEGATIVE (NEGATIVE); URINE KETONE NEGATIVE (NEGATIVE); URINE LEUK ESTERASE NEGATIVE (NEGATIVE); URINE NITRITE NEGATIVE (NEGATIVE); URINE PROTEIN 1+ (NEGATIVE); URINE RBC 23 /uL (0-23.9); URINE UROBILINOGEN 0.2 mg/dL (0.2-1.0); URINE WBC 19 /uL (0-25.8)
[2022-05-15 18:42] LABS: OPIATES, URI POSITIVE (NEGATIVE)
[2022-05-15] MEDS: predniSONE 20 MG TABLET (UD) PO SCH (18:47)
[2022-05-15] MEDS: ATORVASTATIN CA 80 MG TABLET (FP) PO SCH (22:12)
[2022-05-15] MEDS: LIDOCAINE PATCH REMOVAL MC SCH (23:17)
[2022-05-16 09:53] LABS: BASO % 0.2 % (0-2.0); EOS % 0.1 % (0-4.5); HEMATOCRIT 30.2 % (35.4-49); HEMOGLOBIN 9.4 GM/dL (11.7-16.9); LYMPH % 8.9 % (8-40); MCH 27.7 pg (25.7-33.7); MCHC 31.1 g/dl (32.0-35.9); MEAN CELL VOLUME 88.9 fl (80-96); MEAN PLT VOLUME 7.8 fl (7.5-11.1); NEUT % 86.8 % (42.8-82.8); PLATELET COUNT 450 10^3/uL (134-434); RBC 3.39 M/mm3 (4.00-5.60); RDW 16.4 % (11.9-15.9); WHITE BLOOD COUNT 13.6 K/mm3 (4.0-10.0)
[2022-05-16] MEDS: LIDOCAINE 5% TOPICAL PATCH TP SCH (10:03)
[2022-05-16] MEDS: amLODIPine BESYLATE 10 MG TABLET (FP) PO SCH (10:03)
[2022-05-16] MEDS: predniSONE 20 MG TABLET (UD) PO SCH (10:03)
[2022-05-16] MEDS: metoPROLOL SUCCINATE 25 MG TAB.SR.24H (FP) PO SCH (10:04)
[2022-05-16] MEDS: ASPIRIN 81 MG CHEWABLE TABLETS PO SCH (10:04)
[2022-05-16] MEDS: ALLOPURINOL 100 MG TABLET (FP) PO SCH (10:04)
[2022-05-16] MEDS: HEPARIN NA (PORCINE) 5,000 UNITS/ML 1ML VIAL SQ SCH ×2 (10:04→10:07)
[2022-05-16 10:27] LABS: BLOOD UREA NITROGEN 31.8 mg/dL (7-18)
[2022-05-16 10:30] LABS: CALCIUM 9.3 mg/dL (8.5-10.1); PHOSPHOROUS 2.9 mg/dL (2.5-4.9)
[2022-05-16 10:33] LABS: MAGNESIUM 1.8 mg/dL (1.8-2.4)
[2022-05-16] MEDS: POLYETHYLENE GLYCOL (HEALTHYLAX) 3350 17 GM PACKET PO SCH (10:45)
[2022-05-16 17:01] VITALS: BP 140/74; PULSE 95
[2022-05-16 17:22] VITALS: RESP 18; TEMP 97.5
== END 2022-05-16 18:50 | disposition home or self-care (01) | DRG 554 ==
LOC: JER 03:36 → UNDOADMOB 12:53 → JERBED 12:53 → INTOOBSV 12:53 → JERBED 13:10 → J7W 13:46 → OBSVTOIN 05-15 14:56
PROVIDERS: ADMIT Internal Medicine; ATTEND Internal Medicine
DX: M1A.9XX0 Chronic gout, unspecified, without tophus (tophi) (principal); N17.9 Acute kidney failure, unspecified; I25.10 Atherosclerotic heart disease of native coronary artery without angina pectoris; E11.9 Type 2 diabetes mellitus without complications; E78.5 Hyperlipidemia, unspecified; N18.2 Chronic kidney disease, stage 2 (mild); D64.9 Anemia, unspecified; E83.42 Hypomagnesemia; Z95.5 Presence of coronary angioplasty implant and graft; I12.9 Hypertensive chronic kidney disease with stage 1 through stage 4 chronic kidney disease, or unspecified chronic kidney disease
CPT/HCPCS: 36415; 70450-TC; 72100-TC-FY; 73562-TC-RT-FY; 74176-TC; 76882-TC-RT-FY; 80048; 80053; 80307; 81003; 82962; 83036; 83690; 83735; 84100; 84443; 84484; 85025; 85027; 85379; 85610; 85730; 87086; 93005; 93010; 93971-TC; 97116-GP; 97161-GP; 99285-25; C9803-CS; G0378; J1644; U0003; U0005

== ENCOUNTER 2024-06-11 11:33 | Emergency (ER) | payer OTHER ==
[2024-06-11 11:51] VITALS: BP 167/96; PULSE 73; RESP 20; TEMP 98.1; BMI 30.2
[2024-06-11] MEDS ORDERED: ACETAMINOPHEN 500 MG TABLET (FP) ONE (13:40)
[2024-06-11] MEDS: ACETAMINOPHEN 500 MG TABLET (FP) PO ONE (13:40)
== END 2024-06-11 16:39 | disposition home or self-care (01) ==
LOC: JERFT 11:33
DX: M25.572 Pain in left ankle and joints of left foot (principal); V03.10XA Pedestrian on foot injured in collision with car, pick-up truck or van in traffic accident, initial encounter; Y92.410 Unspecified street and highway as the place of occurrence of the external cause
CPT/HCPCS: 73590-TC-LT-FY; 73610-TC-LT-FY; 73630-TC-LT; 99283-25

== ENCOUNTER 2024-09-19 16:38 | Emergency (ER) | payer OTHER ==
[2024-09-19 17:01] VITALS: PULSE 75; TEMP 97.6; BMI 30.7
[2024-09-19] MEDS ORDERED: TRANEXAMIC ACID 1000 MG/10 ML VIAL ONE (17:23)
[2024-09-19] MEDS: TRANEXAMIC ACID 1000 MG/10 ML VIAL IVPUSH ONE (17:42)
[2024-09-19 18:35] VITALS: BP 189/95; RESP 18
== END 2024-09-19 19:05 | disposition home or self-care (01) ==
LOC: JER 16:38
PROC: 3E033GC Introduction of Other Therapeutic Substance into Peripheral Vein, Percutaneous Approach (ICD-10-PCS; principal; 2024-09-19)
DX: R04.0 Epistaxis (principal)
CPT/HCPCS: 96374; 99284-25

== ENCOUNTER 2024-09-21 11:56 | Emergency (ER) | payer OTHER ==
[2024-09-21 12:06] VITALS: BMI 30.7
[2024-09-21] MEDS ORDERED: TRANEXAMIC ACID 1000 MG/10 ML VIAL ONE ×2 (12:54→14:30)
[2024-09-21] MEDS: TRANEXAMIC ACID 1000 MG/10 ML VIAL IVPUSH ONE (13:10)
[2024-09-21] MEDS ORDERED: LOSARTAN POTASSIUM 25 MG TABLET ONE (17:13)
[2024-09-21] MEDS ORDERED: metoPROLOL SUCCINATE 25 MG TAB.SR.24H (FP) PO ONE (17:13)
[2024-09-21] MEDS: metoPROLOL SUCCINATE 25 MG TAB.SR.24H (FP) PO ONE (17:15)
[2024-09-21] MEDS: LOSARTAN POTASSIUM 50 MG TABLET PO ONE (17:15)
[2024-09-21 17:53] VITALS: BP 208/100; PULSE 66; RESP 17; TEMP 98.7
[2024-09-21 20:38] LABS: ABSOLUTE IMMATURE GRANULOCYTES 0.04 x10^3/uL (0.0-0.031); BASOPHILS # 0.08 x10^3/uL (0.01-0.08); EOSINOPHIL % 2.1 % (0.8-7.0); EOSINOPHILS # 0.21 x10^3/uL (0.04-0.54); HEMATOCRIT 35.9 % (40.1-51.0); HEMOGLOBIN 11.5 g/dL (13.7-17.5); MEAN CELL VOLUME 90.7 fl (79.0-92.2); MEAN PLT VOLUME 10.2 fl (9.4-12.4); MONOCYTE # 0.82 x10^3/uL (0.30-0.82); MONOCYTE % 8.4 % (5.3-12.2); PLATELET COUNT 333 x10^3/uL (163-337); RDW 12.9 % (12.2-16.4)
[2024-09-21 21:11] LABS: POTASSIUM 4.3 mmol/L (3.5-5.1)
[2024-09-21 21:13] LABS: ALBUMIN 3.5 g/dl (3.4-5.0); CALCIUM 9.5 mg/dL (8.5-10.1)
[2024-09-21 21:14] LABS: BLOOD UREA NITROGEN 31.9 mg/dL (7-18); MAGNESIUM 1.9 mg/dL (1.8-2.4)
[2024-09-21 21:17] LABS: CREATININE 2.3 mg/dL (0.55-1.3)
[2024-09-21 21:18] LABS: BILIRUBIN,TOTAL 0.4 mg/dL (0.2-1); TOT PROT 7.5 g/dl (6.4-8.2)
== END 2024-09-21 22:22 | disposition home or self-care (01) ==
LOC: JER 11:56
PROC: 3E033GC Introduction of Other Therapeutic Substance into Peripheral Vein, Percutaneous Approach (ICD-10-PCS; principal; 2024-09-21)
DX: R04.0 Epistaxis (principal)
CPT/HCPCS: 36415; 80053; 83735; 84484; 85025; 93005; 93010; 99284-25

== ENCOUNTER 2024-09-24 04:57 | Emergency (ER) | payer OTHER ==
[2024-09-24 05:09] VITALS: RESP 16; TEMP 97.6; BMI 30.7
[2024-09-24] MEDS ORDERED: TRANEXAMIC ACID 1000 MG/10 ML VIAL ONE (05:22)
[2024-09-24] MEDS: TRANEXAMIC ACID 1000 MG/10 ML VIAL IVPUSH ONE (05:43)
[2024-09-24 07:01] VITALS: BP 175/79; PULSE 75
== END 2024-09-24 07:03 | disposition home or self-care (01) ==
LOC: JER 04:57
PROC: 3E033GC Introduction of Other Therapeutic Substance into Peripheral Vein, Percutaneous Approach (ICD-10-PCS; principal; 2024-09-24)
DX: R04.0 Epistaxis (principal)
CPT/HCPCS: 96374; 99284-25